=== PATIENT | female | born 1960 | race Asian ===

== ENCOUNTER 2022-01-26 17:16 | Inpatient (IN) | payer BC, OTHER ==
[~2022-01-26] VITALS: Ht 147.3 cm; Wt 60.9 kg
[2022-01-26 18:28] LABS: Urine Bacteria NONE SEEN /hpf (None Seen); Urine Blood TRACE /uL (Negative); Urine Specific Gravity 1.011 (1.001-1.035); Urine WBC 2 /hpf (0 - 5)
[2022-01-26 18:38] LABS: Basophils # (auto) 0 10 ^3/uL (0-0.2); Basophils % (auto) 0.9 % (0.0-2.0); Eosinophils # (auto) 0 10 ^3/uL (0-0.8); Hematocrit 41.2 % (36.0-46.0); Hemoglobin 14.2 g/dL (12.2-16.2); Lymphocytes # (auto) 0.1 10 ^3/uL (0.4-5.4); Lymphocytes % (auto) 2.3 % (10.0-50.0); Mean Corpuscular Hemoglobin 30.2 pg (28.0-32.0); Mean Corpuscular Hgb Conc. 34.4 g/dL (32.0-36.0); Mean Corpuscular Volume 87.8 fL (80.0-100.0); Monocytes # (auto) 0 10 ^3/uL (0-1.3); Monocytes % (auto) 0.7 % (0.0-12.0); Neutrophils # (auto) 4.3 10 ^3/uL (1.6-8.6); Neutrophils % (auto) 96.1 % (37.0-80.0); Red Blood Cells 4.69 10^6/uL (4.0-5.20); Red Cell Distribution Width 13.1 % (11.8-14.3); White Blood Cell 4.5 10^3/uL (4.4-10.8)
[2022-01-26 18:45] LABS: Potassium 3.1 mmol/L (3.5-5.1)
[2022-01-26] MEDS ORDERED: ACETAMINOPHEN 500 MG TAB PO ONE (18:45)
[2022-01-26 18:48] LABS: Albumin 3.5 g/dL (3.4-5.0); BUN/Creatinine Ratio 10.8; Calcium 8.5 mg/dL (8.5-10.1)
[2022-01-26 18:51] LABS: Bilirubin, Total 1.7 mg/dL (0.2-1.0); Total Protein 7.1 g/dL (6.4-8.2)
[2022-01-26] MEDS ORDERED: SODIUM CHLORIDE 0.9% 1,000 ML IV ONE (19:30)
[2022-01-26] MEDS ORDERED: POTASSIUM EFFERVESENT TAB 25 MEQ PO ONE (19:30)
[2022-01-26] MEDS ORDERED: metroNIDAZOLE 500MG/100ML 100 ML IV ONE (20:00)
[2022-01-26] MEDS ORDERED: cefTRIAXone 1GM/50ML D5W 50 ML IV ONE (20:00)
[2022-01-26] MEDS ORDERED: IOHEXOL 300 MG/ML 100ML BOTTLE IJ ONE (21:41)
[2022-01-26] MEDS ORDERED: PANTOPRAZOLE 40 MG/10 ML VIAL INJ IV ONE (21:45)
[2022-01-26] MEDS ORDERED: MORPHINE SULFATE INJ 2 MG/ml SYRG IV PRN (21:45)
[2022-01-26] MEDS ORDERED: ONDANSETRON HCL 4 MG/2 ML VIAL IV PRN (21:45)
[2022-01-26] MEDS: metroNIDAZOLE 500MG/100ML 100 ML IV SCH (22:00)
[2022-01-26] MEDS: SODIUM CHLORIDE 0.9% 1,000 ML IV SCH (22:20)
[2022-01-27 00:15] VITALS: BP 112/70
[2022-01-27] MEDS ORDERED: AMLO-489 PO (01:18)
[2022-01-27 05:00] VITALS: BP 132/81
[2022-01-27] MEDS: metroNIDAZOLE 500MG/100ML 100 ML IV SCH ×3 (05:20→21:26)
[2022-01-27 05:49] LABS: Albumin 2.8 g/dL (3.4-5.0); Calcium 8.1 mg/dL (8.5-10.1); Potassium 3.9 mmol/L (3.5-5.1)
[2022-01-27 05:50] LABS: Basophils # (auto) 0 10 ^3/uL (0-0.2); Basophils % (auto) 0.1 % (0.0-2.0); Eosinophils # (auto) 0 10 ^3/uL (0-0.8); Hematocrit 37.7 % (36.0-46.0); Lymphocytes # (auto) 0.2 10 ^3/uL (0.4-5.4); Lymphocytes % (auto) 2.2 % (10.0-50.0); Mean Corpuscular Hemoglobin 30.1 pg (28.0-32.0); Mean Corpuscular Hgb Conc. 34.4 g/dL (32.0-36.0); Mean Corpuscular Volume 87.6 fL (80.0-100.0); Monocytes # (auto) 0.4 10 ^3/uL (0-1.3); Monocytes % (auto) 3.7 % (0.0-12.0); Neutrophils # (auto) 9.7 10 ^3/uL (1.6-8.6); Red Cell Distribution Width 13.2 % (11.8-14.3); White Blood Cell 10.3 10^3/uL (4.4-10.8)
[2022-01-27 05:53] LABS: BUN/Creatinine Ratio 7.5; Bilirubin, Total 2.2 mg/dL (0.2-1.0); Total Protein 6.4 g/dL (6.4-8.2)
[2022-01-27 08:30] VITALS: BP 141/72
[2022-01-27] MEDS: cefTRIAXone 1GM/50ML D5W 50 ML IV SCH ×2 (10:13→10:16)
[2022-01-27] MEDS: PANTOPRAZOLE 40 MG/10 ML VIAL INJ IV SCH ×2 (10:13→10:16)
[2022-01-27] MEDS: SODIUM CHLORIDE 0.9% 1,000 ML IV SCH ×2 (10:14→10:16)
[2022-01-27 12:30] VITALS: BP 144/73
[2022-01-27 13:13] LABS: Hepatitis A Ab IgM Negative; Hepatitis B Core IgM Negative
[2022-01-27 13:14] LABS: Hepatitis C Antibody Negative (Negative)
[2022-01-27 16:30] VITALS: BP 115/67
[2022-01-27] MEDS: ACETAMINOPHEN 325 MG TAB PO PRN (20:17)
[2022-01-27 22:00] VITALS: BP_SYST 110; BP_SYST 117; BP_DIAS 60; BP_DIAS 77
[2022-01-28] MEDS: SODIUM CHLORIDE 0.9% 1,000 ML IV SCH ×2 (01:35→20:27)
[2022-01-28 05:00] VITALS: BP 109/59
[2022-01-28] MEDS: metroNIDAZOLE 500MG/100ML 100 ML IV SCH ×3 (05:55→22:00)
[2022-01-28 09:14] VITALS: BP 109/54
[2022-01-28] MEDS: cefTRIAXone 1GM/50ML D5W 50 ML IV SCH (09:19)
[2022-01-28] MEDS: PANTOPRAZOLE 40 MG/10 ML VIAL INJ IV SCH (09:19)
[2022-01-28 12:40] VITALS: BP 125/61
[2022-01-28 16:31] VITALS: BP 146/76
[2022-01-28 16:47] LABS: INR 1.03 (0.9-1.15); Partial Thromboplastin Time 32.4 sec (23.6-33.0)
[2022-01-28 22:00] VITALS: BP 130/66
[2022-01-29 05:00] VITALS: BP 147/67
[2022-01-29] MEDS ORDERED: fentaNYL CITRATE 100 MCG/2 ML VL ONE (07:39)
[2022-01-29] MEDS ORDERED: MEPERIDINE HCL (25 MG/ML) 1ML VIAL ONE (07:39)
[2022-01-29] MEDS ORDERED: MIDAZOLAM HCL 2MG/2ML 2ml VIAL (1mg/ml) ONE (07:39)
[2022-01-29] MEDS ORDERED: ROCURONIUM 10MG/ML 10ML VIAL IV ONE ×2 (07:39→08:59)
[2022-01-29] MEDS ORDERED: SODIUM CHLORIDE LOCK 10 ML ONE (07:40)
[2022-01-29] MEDS ORDERED: ONDANSETRON HCL 4 MG/2 ML VIAL ONE (07:40)
[2022-01-29] MEDS ORDERED: NEOSTIGMINE 1 MG/ML INJ (10mg/10ML VIAL) ONE (07:40)
[2022-01-29] MEDS ORDERED: DexAMETHasone SOD PHOS 10MG/1ML VIAL INJ ONE (07:40)
[2022-01-29] MEDS ORDERED: GLYCOPYRROLATE 0.2 MG/ML 1ML VIAL ONE (07:40)
[2022-01-29] MEDS ORDERED: ceFAZolin 1GM/50ML 50 ML IV ONE (08:39)
[2022-01-29] MEDS ORDERED: HYDROmorphone HCL 2 MG/ML VL/or syr IV PRN (08:45)
[2022-01-29] MEDS ORDERED: MORPHINE SULFATE 4 MG/ML SYR/VIAL IV PRN (08:45)
[2022-01-29] MEDS ORDERED: METOCLOPRAMIDE HCL 5MG/ml INJ 2ml VIAL IV PRN (08:45)
[2022-01-29] MEDS ORDERED: LIDOCAINE W/ EPINEPHRINE 1% 20ML VIAL ONE (08:53)
[2022-01-29] MEDS ORDERED: BUPIVACAINE 0.25% INJ 50ML VIAL ONE (08:54)
[2022-01-29] MEDS ORDERED: SUCCINYLCHOLINE CHLORIDE 20 MG/ML 10ML VIAL IV ONE (08:59)
[2022-01-29 09:00] VITALS: BP 150/72
[2022-01-29] MEDS: cefTRIAXone 1GM/50ML D5W 50 ML IV SCH (09:00)
[2022-01-29] MEDS: PANTOPRAZOLE 40 MG/10 ML VIAL INJ IV SCH (10:00)
[2022-01-29] MEDS ORDERED: HYDROmorphone HCL 2 MG/ML VL/or syr IV ONE ×2 (11:21→11:32)
[2022-01-29] MEDS ORDERED: HYDROmorphone HCL 2 MG/ML VL/or syr ONE (11:21)
[2022-01-29] MEDS: SODIUM CHLORIDE 0.9% 1,000 ML IV SCH (12:15)
[2022-01-29 13:00] VITALS: BP 119/65
[2022-01-29] MEDS: metroNIDAZOLE 500MG/100ML 100 ML IV SCH ×2 (14:00→21:44)
[2022-01-29] MEDS ORDERED: PROPOFOL 10 MG/ML 20 ML IV ONE (14:42)
[2022-01-29 17:00] VITALS: BP 140/71
[2022-01-29] MEDS: ACETAMINOPHEN 325 MG TAB PO PRN (17:47)
[2022-01-29 22:00] VITALS: BP 138/74
[2022-01-30] MEDS: SODIUM CHLORIDE 0.9% 1,000 ML IV SCH ×2 (01:48→11:44)
[2022-01-30 05:00] VITALS: BP 127/73
[2022-01-30] MEDS: metroNIDAZOLE 500MG/100ML 100 ML IV SCH ×3 (05:37→22:04)
[2022-01-30] MEDS: ACETAMINOPHEN 325 MG TAB PO PRN ×2 (07:06→14:29)
[2022-01-30 07:40] LABS: Basophils # (auto) 0 10 ^3/uL (0-0.2); Basophils % (auto) 0.1 % (0.0-2.0); Eosinophils # (auto) 0 10 ^3/uL (0-0.8); Hematocrit 34.7 % (36.0-46.0); Mean Corpuscular Hemoglobin 30.1 pg (28.0-32.0); Mean Corpuscular Hgb Conc. 34.7 g/dL (32.0-36.0); Mean Corpuscular Volume 86.8 fL (80.0-100.0); Monocytes # (auto) 0.5 10 ^3/uL (0-1.3); Monocytes % (auto) 6.3 % (0.0-12.0); Neutrophils # (auto) 7.3 10 ^3/uL (1.6-8.6); Neutrophils % (auto) 82.6 % (37.0-80.0); Red Cell Distribution Width 13.8 % (11.8-14.3); White Blood Cell 8.8 10^3/uL (4.4-10.8)
[2022-01-30 09:16] VITALS: BP 114/78
[2022-01-30] MEDS: PANTOPRAZOLE 40 MG/10 ML VIAL INJ IV SCH (11:42)
[2022-01-30] MEDS: cefTRIAXone 1GM/50ML D5W 50 ML IV SCH (11:43)
[2022-01-30 13:00] VITALS: BP 143/68
[2022-01-30 17:12] VITALS: BP 136/67
[2022-01-30 22:05] VITALS: BP 135/65
[2022-01-31] MEDS: SODIUM CHLORIDE 0.9% 1,000 ML IV SCH (02:20)
[2022-01-31 04:29] VITALS: BP 128/68
[2022-01-31] MEDS: metroNIDAZOLE 500MG/100ML 100 ML IV SCH (06:26)
[2022-01-31 09:00] VITALS: BP 163/73
[2022-01-31] MEDS: cefTRIAXone 1GM/50ML D5W 50 ML IV SCH (09:23)
[2022-01-31] MEDS: PANTOPRAZOLE 40 MG/10 ML VIAL INJ IV SCH (09:23)
[2022-01-31] MEDS ORDERED: LEVO500T31 PO (11:19)
[2022-01-31] MEDS ORDERED: METR500T PO (11:19)
[2022-01-31] MEDS ORDERED: HYDR-4902 PO (11:19)
[2022-01-31 11:41] LABS: Calcium 8.3 mg/dL (8.5-10.1)
[2022-01-31] MEDS ORDERED: cloNIDine HCL 0.1 MG TAB PO ONE (11:45)
[2022-01-31 11:47] LABS: Albumin 2.5 g/dL (3.4-5.0); BUN/Creatinine Ratio 6.1; Bilirubin, Total 0.7 mg/dL (0.2-1.0); Total Protein 6.1 g/dL (6.4-8.2)
[2022-01-31 12:11] LABS: Potassium 2.5 mmol/L (3.5-5.1)
[2022-01-31] MEDS ORDERED: POTASSIUM CHL 20 Meq TABLET PO ONE (12:45)
[2022-01-31 14:05] VITALS: BP 191/81
== END 2022-01-31 15:40 | disposition home or self-care (01) | DRG 419 ==
LOC: ER 17:16 → OVERFLOW 21:31 → WEST WING 23:38
PROVIDERS: ADMIT Nurse Practitioner; ATTEND Family Medicine
PROC: 0FT44ZZ Resection of Gallbladder, Percutaneous Endoscopic Approach (ICD-10-PCS; principal; 2022-01-29 09:20)
DX: K80.00 Calculus of gallbladder with acute cholecystitis without obstruction (principal); I10 Essential (primary) hypertension; K75.9 Inflammatory liver disease, unspecified; K76.0 Fatty (change of) liver, not elsewhere classified; E86.0 Dehydration; Z20.822 Contact with and (suspected) exposure to COVID-19; Z80.1 Family history of malignant neoplasm of trachea, bronchus and lung; Z82.49 Family history of ischemic heart disease and other diseases of the circulatory system
CPT/HCPCS: 36415; 71045; 74177; 74181; 76705; 78226; 80053; 80074; 81001; 82247; 83605; 83690; 84484; 85025; 85610; 85730; 86850; 86900; 86901; 87040; 93005; 96365; 96368; 96375; C9113; G0378; J0330; J0690; J0696; J1100; J2250; J2405; J2704; J3490

== ENCOUNTER 2024-04-14 09:04 | Emergency (ER) | payer BC ==
[~2024-04-14] VITALS: Ht 147.3 cm; Wt 55.3 kg
[~2024-04-14 09:04] MED LIST: AMLO1TAB22 PO; HYDR-4902 PO; LEVO500T31 PO; METR500T PO
[2024-04-14] MEDS: cloNIDine HCL 0.1 MG TAB PO ONE (09:19)
[2024-04-14 10:14] LABS: Urine Bacteria None Seen /hpf (None Seen)
[2024-04-14 10:17] LABS: Basophils # (auto) 0 10 ^3/uL (0-0.2); Basophils % (auto) 0.5 % (0.0-2.0); Eosinophils # (auto) 0.1 10 ^3/uL (0-0.8); Eosinophils % (auto) 1.3 % (0.0-7.0); Hematocrit 41.5 % (36.0-46.0); Hemoglobin 14.5 g/dL (12.2-16.2); Lymphocytes # (auto) 1.2 10 ^3/uL (0.4-5.4); Lymphocytes % (auto) 23.1 % (10.0-50.0); Mean Corpuscular Hemoglobin 30.6 pg (28.0-32.0); Mean Corpuscular Hgb Conc. 34.8 g/dL (32.0-36.0); Mean Corpuscular Volume 87.8 fL (80.0-100.0); Monocytes # (auto) 0.3 10 ^3/uL (0-1.3); Monocytes % (auto) 5.4 % (0.0-12.0); Neutrophils # (auto) 3.6 10 ^3/uL (1.6-8.6); Neutrophils % (auto) 69.7 % (37.0-80.0); Nucleated Red Blood Cells % 0.1 %; Red Blood Cells 4.73 10^6/uL (4.0-5.20); Red Cell Distribution Width 13.1 % (11.8-14.3); White Blood Cell 5.1 10^3/uL (4.4-10.8)
[2024-04-14 10:26] LABS: Chloride 108 mmol/L (98-107); Potassium 3.5 mmol/L (3.5-5.1); Sodium 141 mmol/L (136-145)
[2024-04-14 10:27] LABS: Anion Gap 7 (5-15); Calcium 9.7 mg/dL (8.7-10.4); Carbon Dioxide 26 mmol/L (20-30)
[2024-04-14 10:32] LABS: BUN/Creatinine Ratio 10.8 (10.0-20.0); Blood Urea Nitrogen 7 mg/dL (9-23); Glucose 125 mg/dL (74-106)
[2024-04-14 10:33] LABS: Urine Blood Negative /uL (Negative); Urine Clarity Clear (Clear); Urine Color Colorless (Yellow); Urine Protein, UAD Negative (Negative); Urine Specific Gravity 1.007 (1.001-1.035); Urine Urobilinogen Normal (Negative); Urine WBC <1 /hpf (0 - 5); Urine pH 6.5 (5.0-9.0)
[2024-04-14] MEDS: ACETAMINOPHEN 500 MG TAB PO ONE (10:43)
[2024-04-14] MEDS ORDERED: AMLO1TAB23 PO (10:46)
[2024-04-14 10:50] VITALS: BP 140/80; PULSE 98; RESP 18; TEMP 98.2; O2SAT 98
== END 2024-04-14 10:53 | disposition home or self-care (01) ==
LOC: ER 09:04
DX: I10 Essential (primary) hypertension (principal); Z91.199 Patient's noncompliance with other medical treatment and regimen due to unspecified reason; Z79.899 Other long term (current) drug therapy
CPT/HCPCS: 36415; 80048; 81001; 85025

== ENCOUNTER 2024-05-12 08:12 | Emergency (ER) | payer BC ==
[~2024-05-12] VITALS: Ht 147.3 cm; Wt 51.5 kg
[~2024-05-12 08:12] MED LIST changes: +AMLO1TAB23 PO
[2024-05-12] MEDS ORDERED: cloNIDine HCL 0.1 MG TAB PO ONE (08:30)
[2024-05-12] MEDS: LABETALOL HCL 20 MG/4 ML VL IV ONE (08:30)
[2024-05-12 08:41] LABS: Basophils # (auto) 0 10 ^3/uL (0-0.2); Basophils % (auto) 0.6 % (0.0-2.0); Eosinophils # (auto) 0 10 ^3/uL (0-0.8); Eosinophils % (auto) 0.7 % (0.0-7.0); Hematocrit 45.8 % (36.0-46.0); Hemoglobin 15.7 g/dL (12.2-16.2); Lymphocytes # (auto) 1.9 10 ^3/uL (0.4-5.4); Lymphocytes % (auto) 32.5 % (10.0-50.0); Mean Corpuscular Hemoglobin 30.4 pg (28.0-32.0); Mean Corpuscular Hgb Conc. 34.2 g/dL (32.0-36.0); Mean Corpuscular Volume 88.8 fL (80.0-100.0); Monocytes # (auto) 0.3 10 ^3/uL (0-1.3); Monocytes % (auto) 5.6 % (0.0-12.0); Neutrophils # (auto) 3.5 10 ^3/uL (1.6-8.6); Neutrophils % (auto) 60.6 % (37.0-80.0); Nucleated Red Blood Cells % 0.1 %; Platelet Count (auto) 366 10^3/uL (140-450); Red Blood Cells 5.16 10^6/uL (4.0-5.20); White Blood Cell 5.8 10^3/uL (4.4-10.8)
[2024-05-12 08:54] VITALS: PULSE 102; RESP 16; O2SAT 98
[2024-05-12 09:06] LABS: Alanine Aminotransferase 29 U/L (7-40); Alkaline Phosphatase 106 U/L (46-116); Calcium 10.2 mg/dL (8.7-10.4); Carbon Dioxide 25 mmol/L (20-30); Chloride 103 mmol/L (98-107)
[2024-05-12 09:07] LABS: Albumin 4.6 g/dL (3.2-4.8); Anion Gap 10 (5-15); Aspartate Aminotransferase 20 U/L (13-40); Glucose 118 mg/dL (74-106); Magnesium 2.3 mg/dL (1.6-2.6); Potassium 3.2 mmol/L (3.5-5.1); Sodium 138 mmol/L (136-145); Total Protein 7.4 g/dL (5.7-8.2)
[2024-05-12 09:18] LABS: BUN/Creatinine Ratio 6.6 (10.0-20.0); Bilirubin, Total 0.8 mg/dL (0.2-1.0); Blood Urea Nitrogen < 5 mg/dL (9-23)
[2024-05-12 10:26] LABS: Urine Bacteria MANY /hpf (None Seen); Urine Blood TRACE /uL (Negative); Urine Clarity Clear (Clear); Urine Color Colorless (Yellow); Urine Protein, UAD Negative (Negative); Urine Specific Gravity 1.006 (1.001-1.035); Urine Urobilinogen Normal (Negative); Urine WBC 30 /hpf (0 - 5)
[2024-05-12 13:08] VITALS: TEMP 98.5
[2024-05-12] MEDS: POTASSIUM EFFERVESENT TAB 25 MEQ GT ONE (13:27)
[2024-05-12] MEDS: POTASSIUM EFFERVESENT TAB 25 MEQ PO ONE (13:28)
[2024-05-12] MEDS: hydrALAZINE HCL 20 MG/ML VL IV ONE (13:33)
[2024-05-12] MEDS: SODIUM CHLORIDE 0.9% 1,000 ML IV ONE (14:04)
[2024-05-12 14:42] VITALS: BP 149/64; PULSE 71; RESP 19; O2SAT 98
[2024-05-12] MEDS ORDERED: LOSA-534 PO (15:02)
[2024-05-12] MEDS ORDERED: CEPH250C PO (15:02)
== END 2024-05-12 15:08 | disposition home or self-care (01) ==
LOC: ER 08:12
DX: I10 Essential (primary) hypertension (principal)
CPT/HCPCS: 36415; 71046; 80053; 81001; 83735; 84484; 85025; 93005; 96361; 96374; 96375; 99285; J0360; J7030

== ENCOUNTER 2024-12-25 14:26 | Emergency (ER) | payer BC ==
[~2024-12-25] VITALS: Ht 147.3 cm; Wt 50.1 kg
[~2024-12-25 14:26] MED LIST changes: +CEPH250C PO; +LOSA-534 PO
[2024-12-25 15:00] VITALS: PULSE 104; RESP 16; TEMP 98.8; O2SAT 95
--- NOTE | 2024-12-25 15:09 | ED.PDOC ---
History of Present Illness HPI Comments 64 y.o female with PMHx of HTN and Pre DM, presents to the ED for an evaluation of hypertension, increased thirst and urination output x 2 days. Patient reports compliance with medications, states she is not on any diabetic medication. Patient denies any headaches, vision changes, chest pain or SOB. Upon ED ar herb, blood pressure read 155/88. Chief Complaint: High Blood Pressure Time Seen by MD: 15:00 Primary Care Provider: FLAQUITO Anthony Notes: Nurses Notes, Medications, Allergies Allergies: Coded Allergies: NO KNOWN ALLERGIES (Unverified , 01/26/22) Home Meds Active Scripts Cephalexin (KEFLEX CAPSULE) 250 Mg Cp, 500 MG PO TID for 10 Days, #30 CAP Prov:ARMANDO LIU MD 05/12/24 Losartan Potassium (Losartan Potassium) 50 Mg Tab, 1 TAB PO DAILY, #30 TAB 5 Refills Prov:ARMANDO LIU MD 05/12/24 Amlodipine Besylate (Amlodipine Besylate) 10 Mg Tab, 1 TAB PO DAILY, #30 TAB Prov:ZEKE GARSIA 04/14/24 Hydrocodone-Acetaminophen (Hydrocodone Bitartrate/AC 5-325 mg) 1 Tab Tab, 1 TAB PO TID PRN, #20 TAB Prov:LILY MITCHELL MD 01/31/22 Metronidazole (Flagyl) 500 Mg Tab, 500 MG PO TID, #20 TAB Prov:LILY MITCHELL MD 01/31/22 Levofloxacin (Levaquin) 500 Mg Tab, 500 MG PO DAILY, #7 TAB Prov:LILY MITCHELL MD 01/31/22 Reported Medications Amlodipine Besylate (Amlodipine Besylate) 5 Mg Tab, 10 MG PO DAILY for 30 Days, MG 01/27/22 Information Source: Patient Mode of Arrival: Ambulatory Severity: Moderate Timing: Days (2) Duration: Since onset Past Medical History PAST MEDICAL HISTORY: HTN Surgical History: Denies all surgeries 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 Family History Family History: Reviewed,noncontributory to illness Social History Smoker: Non-Smoker Alcohol: Denies ETOH Use Drugs: Denies Drug Use Lives In: Home Constitutional: denies: chills, diaphoresis, fatigue, fever, malaise, sweats, weakness, others EENTM: denies: blurred vision, double vision, ear bleeding, ear discharge, ear drainage, ear pain, ear ringing, eye pain, eye redness, hearing loss, mouth pain, mouth swelling, nasal discharge, nose bleeding, nose congestion, nose pain, photophobia, tearing, throat pain, throat swelling, voice changes, others Respiratory: denies: cough, hemoptysis, orthopnea, SOB at rest, shortness of breath, SOB with excertion, stridor, wheezing, others Cardiovascular: denies: chest pain, dizzy spells, diaphoresis, Dyspnea on exertion, edema, irregular heart beat, left arm pain, lightheadedness, palpitations, PND, syncope, others Gastrointestinal: denies: abdomen distended, abdominal pain, blood streaked bowels, constipated, diarrhea, dysphagia, difficulty swallowing, hematemesis, melena, nausea, poor appetite, poor fluid intake, rectal bleeding, rectal pain, vomiting, others Genitourinary: denies: abnormal vagina bleeding, burning, dyspareunia, dysuria, flank pain, frequency, hematuria, incontinence, pain, , vagina discharge, urgency, others Neurological: denies: dizziness, fainting, headache, left sided numbness, left sided weakness, numbness, paresthesia, pre-existing deficit, right sided numbness, right sided weakness, seizure, speech problems, tingling, tremors, weakness, others Musculoskeletal: denies: back pain, gout, joint pain, joint swelling, muscle pain, muscle stiffness, neck pain, others Integumetry: denies: bruises, change in color, change in hair/nails, dryness, laceration, lesions, lumps, rash, wounds, others Allergic/Immunocompromised: denies: Difficulty Healing, Frequent Infections, Hives, Itching, others Hematologic/Lymphatic: denies: anemia, blood clots, easy bleeding, easy bruising, swollen glands, others Endocrine: reports: excessive thirst, excessive urination; denies: excessive hunger, excessive sweating, flushing, intolerance to cold, intolerance to heat, unexplained weight gain, unexplained weight loss, others Psychiatric: denies: anxiety, bipolar disorder, depression, hopeless, panic disorder, schizophrenia, sleepless, suicidal, others All Other Systems: Reviewed and Negative Physical Exam General Appearance: Moderate Distress HEENT: Normal ENT Inspection, Pharynx Normal, TMs Normal Neck: Full Range of Motion, Non-Tender, Normal, Normal Inspection Respiratory: Chest Non-Tender, Lungs Clear, No Accessory Muscle Use, No Respiratory Distress, Normal Breath Sounds Cardiovascular: No Edema, No JVD, No Murmur, No Gallop, Normal Peripheral Pulses, Regular Rate/Rhythm Breast Exam: Deferred Gastrointestinal: No Organomegaly, Non Tender, No Pulsatile Mass, Normal Bowel Sounds, Soft Genitalia: Deferred Pelvic: Deferred Rectal: Deferred Extremities: No calf tenderness, Normal capillary refill, Normal inspection, Normal range of motion, Non-tender, No pedal edema Musculoskeletal : Apperance: Normal Neurologic: Alert, 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 Was a procedure done?: No Differential Dx Considerations may include: Essential HTN, accelerated HTN, New onset diabetic, DKA, hyperglycemia X-Ray, Labs, Meds, VS Vital Signs Date Time Temp Pulse Resp B/P (MAP) Pulse Ox O2 Delivery O2 Flow Rate FiO2 12/25/24 15:17 148/98 12/25/24 15:00 104 16 95 Room Air* 0 21 12/25/24 15:00 98.8 104 16 148/94 (112) 95 98.8 12/25/24 14:57 99.2 122 17 155/88 (110) 96 99.2 Lab Test 12/25/24 15:21 12/25/24 14:56 Range/Units Urine Color Colorless Yellow Urine Clarity Clear Clear Urine pH 6.0 5.0-9.0 Urine Specific [place] 1.003 1.001-1.035 Urine Protein Negative Negative Urine Ketones Negative Negative Urine Blood Negative Negative /uL Urine Nitrite Negative Negative Urine Bilirubin Negative Negative Urine Urobilinogen Normal Negative mg/dL Urine Leukocyte Esterase Negative Negative /uL Urine RBC <1 0 - 4 /hpf Urine Microscopic WBC 1 0-5 /HPF Urine Squamous Epithelial Cells None seen <5 /hpf Urine Bacteria Mod H None Seen /hpf Urine Glucose Normal Normal mg/dL POC Glucose 134 H 70-106 mg/dl Current Medications Medications (Trade) Dose Ordered Sig/Demond Route Start Time Stop Time Status Last Admin Clonidine HCl (Catapres Tablet) 0.1 mg ONCE ONCE PO 12/25/24 15:00 12/25/24 15:01 DC 12/25/24 15:17 Patient alert. States that she has high blood pressure. Blood pressure was not much elevated on arrival. She is anxious. Saturation pristine on room air. She was given clonidine. Blood sugar within normal limits. Reviewed her history. Explained to the patient. Was told to follow up with her primary care physician. Was told to come back if there is any problem. Time of 1ST Reevaluation: 15:04 Reevaluation 1ST: Improved Patient Education/Counseling: Diagnosis, Treatment, Prognosis Family Education/Counseling: No Family Present Departure 1 Departure Time of Disposition: 16:05 Impression: Primary Impression: HTN (hypertension) Qualified Codes: I10 - Essential (primary) hypertension Disposition: 01 HOME / SELF CARE / HOMELESS Condition: Good Discharged With: Self Critical Care Note Critical Care Time?: No Stability Stability form required: No I personally scribed for GUANACO EDWARDS MD ([email or web address]) on 12/25/24 at 15:09. Electronically submitted by Nataliia Valles ([facility]). GUANACO EDWARDS MD Dec 25, 2024 15:09
[2024-12-25] MEDS: cloNIDine HCL 0.1 MG TAB PO ONE (15:17)
[2024-12-25 15:36] LABS: Urine Bacteria MOD /hpf (None Seen); Urine Blood Negative /uL (Negative); Urine Clarity Clear (Clear); Urine Color Colorless (Yellow); Urine Protein, UAD Negative (Negative); Urine Specific Gravity 1.003 (1.001-1.035); Urine Squamous Epithelial Cell None Seen /hpf (<5); Urine Urobilinogen Normal (Negative); Urine WBC 1 /HPF (0-5)
[2024-12-25 16:07] VITALS: BP 117/72; PULSE 84; RESP 16; O2SAT 98
== END 2024-12-25 16:09 | disposition home or self-care (01) ==
LOC: ER 14:26
DX: I10 Essential (primary) hypertension (principal); E11.9 Type 2 diabetes mellitus without complications; Z79.899 Other long term (current) drug therapy
CPT/HCPCS: 81001; 82962

== ENCOUNTER 2024-12-29 18:09 | Inpatient (IN) | payer BC ==
[~2024-12-29] VITALS: Ht 144.8 cm; Wt 51.6 kg
[~2024-12-29 18:09] MED LIST changes: +ATOR20TA50 PO; +LOSA-535 PO
--- NOTE | 2024-12-29 18:27 | ED.PDOC ---
HPI Comments 64F presents to the ER w/ prior Hx of being in the ER 4 days ago due from HTN which may be associated to the c/c of CP. Pt reports that whenever she walks she starts to get aching left sided palpitations w/ back pain. Pt notes that it only happened for the past 2 days. PMHx:HTN, High Lipids SHx:Cholecystectomy HPI: Poor Historian. Silvia cardoso 63-year-old female presents to emergency depart for evaluation of exertional shortness of breath with associated palpitations where she feels his heart is beating fast. Some associated chest discomfort on the left side that radiates to the upper back. Patient currently denies any chest pain. Patient states compliance with the medications. Past Medical History: Hypertension hyperlipidemia Past Surgical History: Cholecystectomy REVIEW OF SYSTEMS: CONSTITUTIONAL: Denies acute: fever, diaphoresis, chills, generalized weakness. HEAD: Denies acute: headache, photophobia Eyes: Denies acute: Double vision, vision loss, eye pain, eye discharge. EARS: Denies acute: tinnitus, hearing loss, ear discharge, ear pain, THROAT: Denies acute: sore throat, swelling, difficulty swallowing , pain with swallowing, change in voice. NECK: Denies acute: neck pain, neck swelling, stiff neck. HEART: Denies acute : LUNGS: Denies acute: , wheezing, cough, hemoptysis ABDOMEN: Denies acute: abdominal pain, Nausea, Vomiting, diarrhea, melena , hematemesis, hematochezia SKIN: Denies acute: rash, redness, lesions, itchiness. EXTREMITIES: Denies acute: calf pain, numbness, tingling, weakness, denies pain in extremity. Denies acute: Low back pain. Neuro: Denies acute: focal neurological deficit, motor or sensory focal neurological deficit, tremors, seizure like activity, confusion, dizziness, change in mental status, loss of bowel or bladder function, cauda equina like symptoms. : Denies acute: dysuria, hematuria, flank pain, increase in urinary frequency. PSYCH: Denies acute: hallucination, suicidal ideation, homicidal ideation. FEMALE: Denies acute: abnormal vaginal bleeding, foul odor, unusual discharge. PHYSICAL EXAM: General: ------mild--acute distress, awake and alert. Head: normocephalic, atraumatic. Neck: supple, trachea is midline, no swelling. Throat: Normal phonation. Eyes:, no erythema, no purulent discharge, no proptosis, no icterus. Heart: regular tachycardic, no significant murmur appreciated. Lungs: no apparent respiratory distress, Able to speak in full sentences. No wheezing, no rhonchi, no crackles. No stridors Clear to auscultation bilaterally. Abdomen: non tender to palpation, non distended, soft, no guarding, no rebound, + bowel sounds. Neuro: Awake, Alert, oriented to name, self, situation, follows commands GCS=15. Speech is normal. Skin: no petechia, no purpura, no cyanosis, non-pale, not jaundice. Lower extremities: --no - Pitting edema no deformity, no focal swelling, no calf TTP. Makes eye contact. moves all four extremities. Face: no apparent facial droop. Ambulating in the ED independently. ED COURSE: Time Seen by MD: 18:10 Primary Care Provider: FLAQUITO Reviewed Notes: Nurses Notes, Medications, Allergies Allergies: Coded Allergies: NO KNOWN ALLERGIES (Unverified , 01/26/22) Home Meds Active Scripts Cephalexin (KEFLEX CAPSULE) 250 Mg Cp, 500 MG PO TID for 10 Days, #30 CAP Prov:ARMANDO LIU MD 05/12/24 Losartan Potassium (Losartan Potassium) 50 Mg Tab, 1 TAB PO DAILY, #30 TAB 5 Refills Prov:ARMANDO LIU MD 05/12/24 Amlodipine Besylate (Amlodipine Besylate) 10 Mg Tab, 1 TAB PO DAILY, #30 TAB Prov:ZEKE GARSIA 04/14/24 Hydrocodone-Acetaminophen (Hydrocodone Bitartrate/AC 5-325 mg) 1 Tab Tab, 1 TAB PO TID PRN, #20 TAB Prov:LILY MITCHELL MD 01/31/22 Metronidazole (Flagyl) 500 Mg Tab, 500 MG PO TID, #20 TAB Prov:LILY MITCHELL MD 01/31/22 Levofloxacin (Levaquin) 500 Mg Tab, 500 MG PO DAILY, #7 TAB Prov:LILY MITCHELL MD 01/31/22 Reported Medications Amlodipine Besylate (Amlodipine Besylate) 5 Mg Tab, 10 MG PO DAILY for 30 Days, MG 01/27/22 Information Source: Patient Mode of Arrival: Ambulatory Past Medical History PAST MEDICAL HISTORY: High Lipids, HTN Surgical History: Cholecystectomy 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 Was a procedure done?: No CP Differential Dx Differential Diagnosis: A-fib, A-Flutter, Angina, Anxiety / Panic Attack, Atrial Dysrhythmia, AV Block 1st Degree, AV Block 2nd Degree, AV Block 3rd Degree, Digoxin Toxicity, Electrolyte Disorder, Heart Failure, Hyperthyroidism, Hyperventilation, Hypoxia, MAT, TX, PAC's, PSVT, Pulmonary Embolus, PVC's, Renal Failure, Sinus Tachycardia, Torsades De Pointes, Ventricular Dysrhythmia, V-Fib, V-Tach, WPW Differential Diagnosis: Other (Ddx include but not limitied to gastritis, musculoskeletal pain, radiculopathy, atypical chest pain, dissection, aneurysm, ACS, unstable angina, hiatal hernia, GERD, anxiety, costochondritis, PE, pneumothroax, neoplasm, cardiac ischemia, drug abuse, anemia.) X-Ray, Labs, Meds, VS Vital Signs Date Time Temp Pulse Resp B/P (MAP) Pulse Ox O2 Delivery O2 Flow Rate FiO2 12/29/24 19:04 97 12/29/24 18:32 98.0 116 18 155/79 (104) 96 98.0 12/29/24 18:24 112 Lab Test 12/29/24 19:21 12/29/24 19:08 12/29/24 18:19 Range/Units Blood Gas Specimen Type Arterial Blood Gas Sample Site Right brachial Blood Gas Patient Temperature 37.0 Arterial Blood Date Drawn [id number] Arterial Blood pH 7.453 H 7.350-7.450 Arterial Blood Partial Pressure CO2 41.5 32.0-45.0 mmHg Arterial Blood Partial Pressure O2 76.0 L 83.0-108.0 mmHg Arterial Blood HCO3 28.4 H 21.0-28.0 mmol/L Arterial Blood Oxygen Saturation 95.4 94.0-98.0 % Arterial Blood Base Excess 4.1 H -2.0-3.0 mmol/L Arterial Blood Oxyhemoglobin 94.6 94.0-98.0 % Arterial Blood Carboxyhemoglobin 0.5 0.5-1.5 % Arterial Blood Methemoglobin 0.3 0.0-1.5 % Yuval Test N/a Blood Gas Total Hemoglobin 14.40 12.0-16.0 g/dL Blood Gas Modality Room air FiO2 % 21.0 Troponin I High Sensitivity < 3 L < 3 L </=34 ng/L White Blood Count 7.9 4.4-10.8 10^3/uL Red Blood Count 4.85 4.0-5.20 10^6/uL Hemoglobin 14.5 12.2-16.2 g/dL Hematocrit 42.3 36.0-46.0 % Mean Corpuscular Volume 87.3 80.0-100.0 fL Mean Corpuscular Hemoglobin 30.0 28.0-32.0 pg Mean Corpuscular Hemoglobin Concent 34.3 32.0-36.0 g/dL Red Cell Distribution Width 13.1 11.8-14.3 % Platelet Count 352 140-450 10^3/uL Mean Platelet Volume 6.8 L 6.9-10.8 fL Neutrophils (%) (Auto) 52.4 37.0-80.0 % Lymphocytes (%) (Auto) 39.5 10.0-50.0 % Monocytes (%) (Auto) 6.2 0.0-12.0 % Eosinophils (%) (Auto) 1.1 0.0-7.0 % Basophils (%) (Auto) 0.8 0.0-2.0 % Neutrophils # (Auto) 4.1 1.6-8.6 10 ^3/uL Lymphocytes # (Auto) 3.1 0.4-5.4 10 ^3/uL Monocytes # (Auto) 0.5 0-1.3 10 ^3/uL Eosinophils # (Auto) 0.1 0-0.8 10 ^3/uL Basophils # (Auto) 0.1 0-0.2 10 ^3/uL Nucleated Red Blood Cells 0.8 % D-Dimer, Quantitative < 0.19 0.0-0.49 mg/L FEU Sodium Level 140 136-145 mmol/L Potassium Level 3.5 3.5-5.1 mmol/L Chloride Level 104 98-107 mmol/L Carbon Dioxide Level 27 20-31 mmol/L Anion Gap 9 5-15 Blood Urea Nitrogen 10 9-23 mg/dL Creatinine 0.67 0.550-1.02 mg/dL Glomerular Filtration Rate Calc 98 >90 mL/min BUN/Creatinine Ratio 14.9 10.0-20.0 Serum Glucose 144 H 74-106 mg/dL Calcium Level 10.1 8.7-10.4 mg/dL Magnesium Level 2.3 1.6-2.6 mg/dL Total Bilirubin 0.4 0.2-1.0 mg/dL Aspartate Amino Transferase (AST) 19 13-40 U/L Alanine Aminotransferase (ALT) 18 7-40 U/L Alkaline Phosphatase 126 H 46-116 U/L B-Type Natriuretic Peptide 14.06 0-100 pg/mL Total Protein 7.9 5.7-8.2 g/dL Albumin 4.9 H 3.2-4.8 g/dL Thyroid Stimulating Hormone (TSH) 2.17 0.55-4.78 uIU/mL [place] [id number] Ph: [phone] DIAGNOSTIC IMAGING Diagnostic Imaging Report : [id number] Signed PATIENT: SILVIA CARDOSO ACCT: [id number] UNIT: [id number] : 1960 LOC: ER ROOM / BED: / AGE / SEX: 64 / F ADM STATUS: REG ER SERVICE 1811 ORDERING PHYSICIAN: JOANN LANGLEY DO PROCEDURE(s): CXRP - CHEST PORTABLE REASON: cp ORDER NUMBER(s): [id number], ACCESSION NUMBER(s): [id number] EXAM: XY CHEST PORTABLE REASON FOR EXAM: Chest pain TECHNIQUE: 1 view of the chest COMPARISON: CHEST PORTABLE on DOS: 01/29/22 FINDINGS: LUNGS: No pleural effusion, consolidation, or pneumothorax MEDIASTINUM: Unremarkable BONES: No acute osseous abnormality OTHER: None IMPRESSION: 1. No radiographic evidence of an acute cardiopulmonary process. ATED BY: KENDAL BARRIOS MD DICTATED DATE/TIME: 12/29/241844 SIGNED BY: KENDAL BARRIOS MD SIGNED DATE/TIME: 12/29/241844 CC: Time of 1ST Reevaluation: 18:40 Reevaluation 1ST: Unchanged Patient Education/Counseling: Diagnosis, Treatment Family Education/Counseling: No Family Present Comments Patient presented with the above HPI.-cardiac-----workup was initiated. patient was found with the above mentioned diagnosis. the following medications were ordered: please refer to order lists of meds and tests obtained by myself Dr. Langley. Patient ED course and VS have been stabilized. Patient has been reassessed in the ED and remained in a stable condition. Pertinent incidental findings were discussed with the patient and/or family. Patient/family voices understanding and is agreeable with plan. Patient has been observed in the ED adequate length of time to insure improvement/stability. Escalation of care considered: Consideration of escalation to observation or admission Patient was ADMITTED to the medicine team for further evaluation and treatment of their presentation. All the reports of any imaging studies that were ordered by myself were reviewed by myself. Departure 1 Departure Time of Disposition: 18:59 Impression: Primary Impression: Chest pain Additional Impressions: Tachycardia Hypoxemia Disposition: ADMITTED INPATIENT Admit to: Tele Condition: Guarded Discharged With: Self Critical Care Note Critical Care Time?: Yes (35 min-critical care time only) Heart Score Heart Score: Heart Score Response (Comments) Value History Moderate Suspicious 1 EKG Normal 0 Age 45-64 1 Risk Factors 1 or 2 risk factors 1 Troponin Normal limit 0 Total 3 I personally scribed for JOANN LANGLEY DO ([email or web address]) on 12/29/24 at 18:27. Electronically submitted by Prakash Corona ([email or web address]). JOANN LANGLEY DO Dec 29, 2024 18:27
[2024-12-29 18:36] LABS: Basophils # (auto) 0.1 10 ^3/uL (0-0.2); Basophils % (auto) 0.8 % (0.0-2.0); Eosinophils # (auto) 0.1 10 ^3/uL (0-0.8); Eosinophils % (auto) 1.1 % (0.0-7.0); Hematocrit 42.3 % (36.0-46.0); Hemoglobin 14.5 g/dL (12.2-16.2); Lymphocytes # (auto) 3.1 10 ^3/uL (0.4-5.4); Lymphocytes % (auto) 39.5 % (10.0-50.0); Mean Corpuscular Hgb Conc. 34.3 g/dL (32.0-36.0); Mean Corpuscular Volume 87.3 fL (80.0-100.0); Monocytes # (auto) 0.5 10 ^3/uL (0-1.3); Monocytes % (auto) 6.2 % (0.0-12.0); Neutrophils # (auto) 4.1 10 ^3/uL (1.6-8.6); Neutrophils % (auto) 52.4 % (37.0-80.0); Nucleated Red Blood Cells % 0.8 %; Platelet Count (auto) 352 10^3/uL (140-450); Red Blood Cells 4.85 10^6/uL (4.0-5.20); Red Cell Distribution Width 13.1 % (11.8-14.3); White Blood Cell 7.9 10^3/uL (4.4-10.8)
--- NOTE | 2024-12-29 18:47 | DVH ---
EXAM: XY CHEST PORTABLE REASON FOR EXAM: Chest pain TECHNIQUE: 1 view of the chest COMPARISON: CHEST PORTABLE on DOS: 01/29/22 FINDINGS: LUNGS: No pleural effusion, consolidation, or pneumothorax MEDIASTINUM: Unremarkable BONES: No acute osseous abnormality OTHER: None IMPRESSION: 1. No radiographic evidence of an acute cardiopulmonary process.
[2024-12-29 18:50] LABS: Alanine Aminotransferase 18 U/L (7-40); Anion Gap 9 (5-15); Aspartate Aminotransferase 19 U/L (13-40); BUN/Creatinine Ratio 14.9 (10.0-20.0); Blood Urea Nitrogen 10 mg/dL (9-23); Calcium 10.1 mg/dL (8.7-10.4); Carbon Dioxide 27 mmol/L (20-31); Chloride 104 mmol/L (98-107); Potassium 3.5 mmol/L (3.5-5.1); Sodium 140 mmol/L (136-145); Total Protein 7.9 g/dL (5.7-8.2)
[2024-12-29 18:51] LABS: Bilirubin, Total 0.4 mg/dL (0.2-1.0)
[2024-12-29 18:53] LABS: Alkaline Phosphatase 126 U/L (46-116); Glucose 144 mg/dL (74-106)
[2024-12-29 18:54] LABS: Albumin 4.9 g/dL (3.2-4.8)
--- NOTE | 2024-12-29 19:04 | ECG ---
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
[2024-12-29 19:31] LABS: Base Excess 4.1 mmol/L (-2.0-3.0)
[2024-12-29] MEDS: NITROGLYCERIN 0.4 MG SL TAB SL ONE (21:14)
[2024-12-29] MEDS: ASPirin-EC 325mg tab PO ONE (21:16)
[2024-12-29 21:30] VITALS: PULSE 97; RESP 14; O2SAT 99
--- NOTE | 2024-12-29 21:41 | DVHHP2 ---
Admitting Diagnosis: Chest pain History of Present Illness Silvia thorne 64-year-old female presents to emergency depart for evaluation of exertional shortness of breath with associated palpitations where she feels his heart is beating fast. Some associated chest discomfort on the left side that radiates to the upper back. Patient currently denies any chest pain. Patient states compliance with the medications. Past Medical History: Hypertension hyperlipidemia Past Surgical History: Cholecystectomy REVIEW OF SYSTEMS: CONSTITUTIONAL: Denies acute: fever, diaphoresis, chills, generalized weakness. HEAD: Denies acute: headache, photophobia Eyes: Denies acute: Double vision, vision loss, eye pain, eye discharge. EARS: Denies acute: tinnitus, hearing loss, ear discharge, ear pain, THROAT: Denies acute: sore throat, swelling, difficulty swallowing , pain with swallowing, change in voice. NECK: Denies acute: neck pain, neck swelling, stiff neck. HEART: Denies acute : LUNGS: Denies acute: , wheezing, cough, hemoptysis ABDOMEN: Denies acute: abdominal pain, Nausea, Vomiting, diarrhea, melena , hematemesis, hematochezia SKIN: Denies acute: rash, redness, lesions, itchiness. EXTREMITIES: Denies acute: calf pain, numbness, tingling, weakness, denies pain in extremity. Denies acute: Low back pain. Neuro: Denies acute: focal neurological deficit, motor or sensory focal neurological deficit, tremors, seizure like activity, confusion, dizziness, change in mental status, loss of bowel or bladder function, cauda equina like symptoms. : Denies acute: dysuria, hematuria, flank pain, increase in urinary frequency. PSYCH: Denies acute: hallucination, suicidal ideation, homicidal ideation. FEMALE: Denies acute: abnormal vaginal bleeding, foul odor, unusual discharge. PAST MEDICAL HISTORY: High Lipids, HTN Surgical History: Cholecystectomy AMPHIBIOUS OPERATIONS OFFICER History: Denies all AMPHIBIOUS OPERATIONS OFFICER Hx Family History Family History: Reviewed,noncontributory to illness, Unknown Social History Smoker: Non-Smoker Alcohol: Denies ETOH Use Drugs: Denies Drug Use Lives In: Home Patient Family History: Arthritis G8 MOTHER Cardiovascular disease G8 FATHER FH: gallbladder disease G8 FATHER FH: lung cancer G8 MOTHER Allergies: Coded Allergies: NO KNOWN ALLERGIES (Unverified , 01/26/22) Home Meds Active Scripts Cephalexin (KEFLEX CAPSULE) 250 Mg Cp, 500 MG PO TID for 10 Days, #30 CAP Prov:ARMANDO LIU MD 05/12/24 Losartan Potassium (Losartan Potassium) 50 Mg Tab, 1 TAB PO DAILY, #30 TAB 5 Refills Prov:ARMANDO LIU MD 05/12/24 Amlodipine Besylate (Amlodipine Besylate) 10 Mg Tab, 1 TAB PO DAILY, #30 TAB Prov:ZEKE GARSIA 04/14/24 Hydrocodone-Acetaminophen (Hydrocodone Bitartrate/AC 5-325 mg) 1 Tab Tab, 1 TAB PO TID PRN, #20 TAB Prov:LILY MITCHELL MD 01/31/22 Metronidazole (Flagyl) 500 Mg Tab, 500 MG PO TID, #20 TAB Prov:LILY MITCHELL MD 01/31/22 Levofloxacin (Levaquin) 500 Mg Tab, 500 MG PO DAILY, #7 TAB Prov:LILY MITCHELL MD 01/31/22 Reported Medications Amlodipine Besylate (Amlodipine Besylate) 5 Mg Tab, 10 MG PO DAILY for 30 Days, MG 01/27/22 Vital Signs Vital Signs Date Time Temp Pulse Resp B/P (MAP) Pulse Ox O2 Delivery O2 Flow Rate FiO2 12/29/24 21:30 97 14 99 Room Air* 0 21 12/29/24 21:29 97.9 160/71 (100) 97.9 Physical Exam 64 years old woman, well nourished well developed. No apparent distress HEENT-atraumatic normocephalic Heart-regular rate and rhythm Lungs clear to auscultate bilaterally Abdomen soft nontender nondistended Musculoskeletal-no edema cyanosis Neuro-AO x3, no focal deficits Results Labs Test 12/29/24 20:47 12/29/24 19:21 12/29/24 18:19 Range/Units Troponin I High Sensitivity < 3 L </=34 ng/L Blood Gas Specimen Type Arterial Blood Gas Sample Site Right brachial Blood Gas Patient Temperature 37.0 Arterial Blood Date Drawn [id number] Arterial Blood pH 7.453 H 7.350-7.450 Arterial Blood Partial Pressure CO2 41.5 32.0-45.0 mmHg Arterial Blood Partial Pressure O2 76.0 L 83.0-108.0 mmHg Arterial Blood HCO3 28.4 H 21.0-28.0 mmol/L Arterial Blood Oxygen Saturation 95.4 94.0-98.0 % Arterial Blood Base Excess 4.1 H -2.0-3.0 mmol/L Arterial Blood Oxyhemoglobin 94.6 94.0-98.0 % Arterial Blood Carboxyhemoglobin 0.5 0.5-1.5 % Arterial Blood Methemoglobin 0.3 0.0-1.5 % Yuval Test N/a Blood Gas Total Hemoglobin 14.40 12.0-16.0 g/dL Blood Gas Modality Room air FiO2 % 21.0 White Blood Count 7.9 4.4-10.8 10^3/uL Red Blood Count 4.85 4.0-5.20 10^6/uL Hemoglobin 14.5 12.2-16.2 g/dL Hematocrit 42.3 36.0-46.0 % Mean Corpuscular Volume 87.3 80.0-100.0 fL Mean Corpuscular Hemoglobin 30.0 28.0-32.0 pg Mean Corpuscular Hemoglobin Concent 34.3 32.0-36.0 g/dL Red Cell Distribution Width 13.1 11.8-14.3 % Platelet Count 352 140-450 10^3/uL Mean Platelet Volume 6.8 L 6.9-10.8 fL Neutrophils (%) (Auto) 52.4 37.0-80.0 % Lymphocytes (%) (Auto) 39.5 10.0-50.0 % Monocytes (%) (Auto) 6.2 0.0-12.0 % Eosinophils (%) (Auto) 1.1 0.0-7.0 % Basophils (%) (Auto) 0.8 0.0-2.0 % Neutrophils # (Auto) 4.1 1.6-8.6 10 ^3/uL Lymphocytes # (Auto) 3.1 0.4-5.4 10 ^3/uL Monocytes # (Auto) 0.5 0-1.3 10 ^3/uL Eosinophils # (Auto) 0.1 0-0.8 10 ^3/uL Basophils # (Auto) 0.1 0-0.2 10 ^3/uL Nucleated Red Blood Cells 0.8 % D-Dimer, Quantitative < 0.19 0.0-0.49 mg/L FEU Sodium Level 140 136-145 mmol/L Potassium Level 3.5 3.5-5.1 mmol/L Chloride Level 104 98-107 mmol/L Carbon Dioxide Level 27 20-31 mmol/L Anion Gap 9 5-15 Blood Urea Nitrogen 10 9-23 mg/dL Creatinine 0.67 0.550-1.02 mg/dL Glomerular Filtration Rate Calc 98 >90 mL/min BUN/Creatinine Ratio 14.9 10.0-20.0 Serum Glucose 144 H 74-106 mg/dL Calcium Level 10.1 8.7-10.4 mg/dL Magnesium Level 2.3 1.6-2.6 mg/dL Total Bilirubin 0.4 0.2-1.0 mg/dL Aspartate Amino Transferase (AST) 19 13-40 U/L Alanine Aminotransferase (ALT) 18 7-40 U/L Alkaline Phosphatase 126 H 46-116 U/L B-Type Natriuretic Peptide 14.06 0-100 pg/mL Total Protein 7.9 5.7-8.2 g/dL Albumin 4.9 H 3.2-4.8 g/dL Thyroid Stimulating Hormone (TSH) 2.17 0.55-4.78 uIU/mL Primary Diagnosis Chest pain rule out ACS Plan Patient says that chest pain is intermittent and persistent Currently chest pain resolved Troponin negative x3 Check EKG Check echo of the heart to rule out abnormal heart motion cardiac diet SBP is elevated Resume amlodipine 10 mg daily Losartan 100 mg daily Atorvastatin 20 mg daily Full code Lovenox for DVT prophylaxis No GI prophylaxis Plan discussed with: Patient Date of Service: Dec 29, 2024 Billing Provider: MANJU FUNES MD Common Visit Codes: [id number] INP/OBS CARE (MOD) MANJU FUNES MD Dec 29, 2024 21:41
[2024-12-29] MEDS ORDERED: DOCUSATE SOD 100 MG CAP PO PRN (21:45)
[2024-12-29] MEDS ORDERED: HYDROmorphone HCL 2 MG/ML VL/or syr IV PRN (21:45)
[2024-12-29] MEDS ORDERED: MORPHINE SULFATE INJ 2 MG/ml SYRG IV PRN (21:45)
[2024-12-29] MEDS ORDERED: HYDROcodone-ACET 5/325MG TAB PO PRN (21:45)
[2024-12-29] MEDS ORDERED: ONDANSETRON HCL 4 MG/2 ML VIAL IV PRN (21:45)
[2024-12-29] MEDS ORDERED: NITROGLYCERIN 0.4 MG SL TAB SL PRN (21:45)
[2024-12-29] MEDS: SODIUM CHLOR 0.9% PF (SALINE LOCK) 10ML VIAL/SYR IV SCH (22:05)
[2024-12-29 22:24] VITALS: BP 151/80; PULSE 87; RESP 18; TEMP 97.7; O2SAT 97
[2024-12-29] MEDS: ACETAMINOPHEN 325 MG TAB PO PRN (23:42)
[2024-12-30] VITALS (9 sets, daily range): BP systolic 135–166; BP diastolic 64–78; PULSE 74–89; RESP 16–20; TEMP 97.8–98.4; O2SAT 94–98
[2024-12-30 07:44] LABS: Alanine Aminotransferase 16 U/L (7-40); Alkaline Phosphatase 111 U/L (46-116); Anion Gap 9 (5-15); BUN/Creatinine Ratio 10.8 (10.0-20.0); Calcium 9.8 mg/dL (8.7-10.4); Carbon Dioxide 27 mmol/L (20-31); Chloride 106 mmol/L (98-107); Magnesium 2.5 mg/dL (1.6-2.6); Potassium 3.6 mmol/L (3.5-5.1); Sodium 142 mmol/L (136-145); Total Protein 7.4 g/dL (5.7-8.2)
[2024-12-30 07:45] LABS: Albumin 4.6 g/dL (3.2-4.8); Aspartate Aminotransferase 15 U/L (13-40); Blood Urea Nitrogen 7 mg/dL (9-23); Glucose 110 mg/dL (74-106)
[2024-12-30 07:46] LABS: Bilirubin, Total 0.5 mg/dL (0.2-1.0)
[2024-12-30 07:52] LABS: Basophils # (auto) 0 10 ^3/uL (0-0.2); Basophils % (auto) 0.6 % (0.0-2.0); Eosinophils # (auto) 0 10 ^3/uL (0-0.8); Eosinophils % (auto) 0.8 % (0.0-7.0); Hematocrit 41.9 % (36.0-46.0); Hemoglobin 14.2 g/dL (12.2-16.2); Lymphocytes # (auto) 1.4 10 ^3/uL (0.4-5.4); Lymphocytes % (auto) 23.9 % (10.0-50.0); Mean Corpuscular Hemoglobin 29.9 pg (28.0-32.0); Mean Corpuscular Hgb Conc. 33.9 g/dL (32.0-36.0); Mean Corpuscular Volume 88.1 fL (80.0-100.0); Monocytes # (auto) 0.3 10 ^3/uL (0-1.3); Monocytes % (auto) 5.7 % (0.0-12.0); Neutrophils # (auto) 4.1 10 ^3/uL (1.6-8.6); Nucleated Red Blood Cells % 0.1 %; Platelet Count (auto) 305 10^3/uL (140-450); Red Blood Cells 4.75 10^6/uL (4.0-5.20); Red Cell Distribution Width 13.2 % (11.8-14.3)
[2024-12-30] MEDS: amLODIPine BESYLATE 5 MG TAB PO SCH (09:06)
[2024-12-30] MEDS: ATORVASTATIN 20 MG TAB PO SCH (09:07)
[2024-12-30] MEDS: ENOXAPARIN SOD 40 MG/0.4 ML SYRINGE SC SCH (09:08)
[2024-12-30] MEDS: LOSARTAN POTASSIUM 50 MG TAB PO SCH (09:08)
--- NOTE | 2024-12-30 12:31 | DVHPN2 ---
Reviewed: Care Plan, H&P, Labs, Medications, Previous Orders, Radiology Changes from previous H/P or p: No Changes Objective Vitals Vital Signs Date Time Temp Pulse Resp B/P (MAP) Pulse Ox O2 Delivery O2 Flow Rate FiO2 12/30/24 09:08 136/74 12/30/24 08:59 97.8 74 18 98 97.8 12/30/24 07:30 Room Air* 0 21 Intake/Output Intake and Output 12/30/24 07:00 Intake Total 1280 ml Balance 1280 ml Intake Oral 1280 ml # Voids 3 Medications Current Medications Medications Dose Ordered Sig/Demond Route Start Time Stop Time Status Last Admin Dose Admin Atorvastatin Calcium 20 mg DAILY PO 12/30/24 10:00 12/30/24 09:07 20 MG Losartan Potassium 100 mg DAILY PO 12/30/24 10:00 12/30/24 09:08 100 MG Amlodipine Besylate 10 mg DAILY PO 12/30/24 10:00 12/30/24 09:06 10 MG Sodium Chloride 10 ml Q8HR IV 12/29/24 22:00 12/30/24 05:59 10 ML Docusate Sodium 100 mg BIDPRN PRN PO 12/29/24 21:45 Acetaminophen 650 mg Q6HP PRN PO 12/29/24 21:45 12/29/24 23:42 650 MG Acetaminophen/ Hydrocodone Bitart 1 tab Q4HP PRN PO 12/29/24 21:45 Hydromorphone HCl 0.5 mg Q4HP PRN IV 12/29/24 21:45 Ondansetron HCl 4 mg Q4HP PRN IV 12/29/24 21:45 Enoxaparin Sodium 40 mg DAILY SC 12/30/24 10:00 Nitroglycerin 0.4 mg Q5MINP PRN SL 12/29/24 21:45 Morphine Sulfate 2 mg Q30M PRN IV 12/29/24 21:45 Laboratory Results Laboratory Tests 12/30/24 06:33 Chemistry Test 12/29/24 18:19 12/30/24 06:33 Albumin 4.9 g/dL (3.2-4.8) H 4.6 g/dL (3.2-4.8) Calcium Level 10.1 mg/dL (8.7-10.4) 9.8 mg/dL (8.7-10.4) Magnesium Level 2.3 mg/dL (1.6-2.6) 2.5 mg/dL (1.6-2.6) Total Protein 7.9 g/dL (5.7-8.2) 7.4 g/dL (5.7-8.2) Coagulation Test 12/29/24 18:19 D-Dimer, Quantitative < 0.19 mg/L FEU (0.0-0.49) Cardiac Markers Test 12/29/24 18:19 B-Type Natriuretic Peptide 14.06 pg/mL (0-100) LFT Test 12/29/24 18:19 12/30/24 06:33 Alanine Aminotransferase (ALT) 18 U/L (7-40) 16 U/L (7-40) Alkaline Phosphatase 126 U/L (46-116) H 111 U/L (46-116) Aspartate Amino Transferase (AST) 19 U/L (13-40) 15 U/L (13-40) Total Bilirubin 0.4 mg/dL (0.2-1.0) 0.5 mg/dL (0.2-1.0) HgA1c, TSH Test 12/29/24 18:19 Thyroid Stimulating Hormone (TSH) 2.17 uIU/mL (0.55-4.78) Blood Gas Results Test 12/29/24 19:21 Arterial Blood pH 7.453 (7.350-7.450) FiO2 % 21.0 Labs and/or images reviewed: Labs reviewed by me, Image(s) reviewed by me Assessment/Plan Assessment/Plan Acute chest pain rule out coronary artery disease: Troponin negative x3, treatment per ACS protocol cardiology consult for Dr. Cordova Hypertension: Amlodipine Coreg Hypercholesterolemia: Lipitor Thyroid function test normal Echocardiogram report pending Plan discussed with: Patient Date of Service: Dec 30, 2024 Billing Provider: LILY MITCHELL MD Common Visit Codes: [id number] INP/OBS CARE(HIGH) LILY MITCHELL MD Dec 30, 2024 12:31
[2024-12-30 12:42] LABS: Triglycerides 62 mg/dL (< 150)
[2024-12-30 12:43] LABS: LDL Cholesterol 61 mg/dL (< 100)
[2024-12-30 12:44] LABS: Cholesterol 130 mg/dL (< 200); HDL Cholesterol 60 mg/dL (40-59)
--- NOTE | 2024-12-30 16:57 | DVHSR ---
APPROVED REPORT EXAM: Two-dimensional and M-mode echocardiogram with Doppler and color Doppler. Blood Pressure: 141/69 mmHg INDICATION Chest Pain RISK FACTORS Height: 4'9", Weight: 109 DIMENSIONS LVDd3.6 (3.8-5.7cm)LA (2D)3.5 (1.9-4.0cm)Aortic Root2.3 (2.0-3.7cm) LVDs2.3 (2.5-4.0cm)LA (MM) (1.9-4.0cm)Aortic Cusp Exc1.6 (1.5-2.0cm) EF (%) 66.0 (55-70%)Rt. Atrium3.5 (1.9-4.0cm)Asc. Aorta cm IVSd0.9 (0.7-1.1cm)RV (D)2.7 (1.8-2.4cm) PWd0.7 (0.7-1.1cm) Mitral Valve MitralMitral Stenosis E wave0.77m/sMV Mean GR.mmHg A wave1.05m/sMV Peak GR.mmHg E/A ratio0.72D MVAcm2 DECEL [id number] 1/2 Timems Aortic Valve Aortic ValveAortic Stenosis V10.96m/Leila Mean GR.3mmHg V21.11m/Leila Peak GR.5mmHg LVOT Diameter1.6 (1.8-2.4cm)Doppler AVA1.74cm2 Pulmonic Valve V20.70m/s Other Information Quality : Technically LimitedRhythm : Conclusion LVEF normal at 50-55%, mild LVH, mild diastolic dysfunction Right ventricle size and function normal Valves not well visualized but grossly normal
--- NOTE | 2024-12-30 18:10 | DVHINCON2 ---
Date Seen: Dec 30, 2024 Referring Physician MD Calixto Reason for Consultation Chest pain History of Present Illness This is a 64-year-old female patient who presents to the emergency room with chief complaint of chest pain. The patient reports that the chest pain began at approximately 5:40 p.m. yesterday while walking. She describes the pain as unprovoked, intermittent, sharp in nature, left-sided with radiation to her back. Associated symptoms include shortness of breath. The patient became worried and decided to come to the emergency room for further evaluation. Initial twelve lead electrocardiogram reveals sinus tachycardia without any significant ST segment changes. Serial troponin levels have been negative. Significant past medical history includes hypertension, dyslipidemia, pre diabetes, and kidney stones. Patient is unsure of any pertinent family history given that she was adopted. Past Medical History Past medical history reviewed. No other significant than mentioned above. Past Surgical History Cholecystectomy Family History: Arthritis G8 MOTHER Cardiovascular disease G8 FATHER FH: gallbladder disease G8 FATHER FH: lung cancer G8 MOTHER Family History Patient unsure family history given that she was adopted Social History Patient has a five pack-year history, quit smoking over 20 years ago Denies any illicit drug use Denies any alcohol use Allergies: Coded Allergies: NO KNOWN ALLERGIES (Unverified , 01/26/22) Home Meds Active Scripts Amlodipine Besylate (Amlodipine Besylate) 10 Mg Tab, 1 TAB PO DAILY, #30 TAB Prov:ZEKE GARSIA 04/14/24 Reported Medications Atorvastatin Calcium (ATORVASTATIN CALCIUM) 20 Mg Tab, 1 TAB PO DAILY for 30 Days, #30 12/30/24 Losartan Potassium (Losartan Potassium) 100 Mg Tab, 1 TAB PO DAILY for 30 Days, #30 12/30/24 Home Meds Home medications reviewed. Current Medications Current Medications Medications (Trade) Dose Ordered Sig/Demond Route PRN Reason Start Time Stop Time Status Last Admin Atorvastatin Calcium (Lipitor) 20 mg DAILY PO 12/30/24 10:00 12/30/24 09:07 Losartan Potassium (Cozaar Tablet) 100 mg DAILY PO 12/30/24 10:00 12/30/24 09:08 Amlodipine Besylate (Norvasc Tablet) 10 mg DAILY PO 12/30/24 10:00 12/30/24 09:06 Sodium Chloride (Saline Lock Ns) 10 ml Q8HR IV 12/29/24 22:00 12/30/24 17:22 Docusate Sodium (Colace Capsule) 100 mg BIDPRN PRN PO FOR CONSTIPATION 12/29/24 21:45 Acetaminophen (Tylenol Tablet) 650 mg Q6HP PRN PO PAIN SCALE 1-3 OR TEMP>100.4 12/29/24 21:45 12/29/24 23:42 Acetaminophen/ Hydrocodone Bitart ([place] 5/325MG Tab) 1 tab Q4HP PRN PO MODERATE PAIN (4-6 PAIN SCALE) 12/29/24 21:45 Hydromorphone HCl (Dilaudid Injection) 0.5 mg Q4HP PRN IV SEVERE PAIN (7-10 PAIN SCALE) 12/29/24 21:45 Ondansetron HCl (Zofran) 4 mg Q4HP PRN IV NAUSEA / VOMITING 12/29/24 21:45 Enoxaparin Sodium (Lovenox) 40 mg DAILY SC 12/30/24 10:00 Nitroglycerin (Ntrostat Sublingual) 0.4 mg Q5MINP PRN SL FOR CHEST PAIN 12/29/24 21:45 Morphine Sulfate 2 mg Q30M PRN IV FOR CHEST PAIN 12/29/24 21:45 Review of Systems Constitutional: No symptom reported Ears, Nose, & Throat: No symptom reported Eyes: No symptom reported Neurological: No symptoms reported Pulmonary/Respiratory: Shortness of breath Cardiovascular: Chest pain Gastrointestinal: No symptom reported Genitourinary: No symptom reported Musculoskeletal: No symptom reported Skin: No symptom reported Psychiatric: No symptom reported Endocrine: No symptom reported Hematologic/Lymphatic: No symptom reported Vital Signs Vital Signs Date Time Temp Pulse Resp B/P (MAP) Pulse Ox O2 Delivery O2 Flow Rate FiO2 12/30/24 17:44 149/78 (101) 12/30/24 17:04 98.4 89 20 94 98.4 12/30/24 07:30 Room Air* 0 21 Physical Exam General Appearance: Cooperative. Well-developed. Well-nourished. No acute distress. Pulmonary/Respiratory: Clear, bilateral breaths sounds. Cardiovascular/Chest: Regular rate and rhythm. Peripheral Pulses: 2+ Radial (R). 2+ Radial (L). 2+ Pedal (R). 2+ Pedal (L) Abdominal Exam: Normal bowel sounds. Ankle Exam: Negative ankle edema Lower extremities: Negative lower extremity edema Neuro/Mental Status: A/OX4, coherent. Thoughts/Psych: Normal thought pattern. Appropriate mood and affect. Good judgment and insight. Appearance: No acute distress. Skin Exam: Normal inspection. Normal color. Warm and dry. Labs/Diagnostic Data Labs Test 12/30/24 06:33 12/29/24 20:47 12/29/24 19:21 12/29/24 18:19 Range/Units White Blood Count 6.0 4.4-10.8 10^3/uL Red Blood Count 4.75 4.0-5.20 10^6/uL Hemoglobin 14.2 12.2-16.2 g/dL Hematocrit 41.9 36.0-46.0 % Mean Corpuscular Volume 88.1 80.0-100.0 fL Mean Corpuscular Hemoglobin 29.9 28.0-32.0 pg Mean Corpuscular Hemoglobin Concent 33.9 32.0-36.0 g/dL Red Cell Distribution Width 13.2 11.8-14.3 % Platelet Count 305 140-450 10^3/uL Mean Platelet Volume 6.8 L 6.9-10.8 fL Neutrophils (%) (Auto) 69.0 37.0-80.0 % Lymphocytes (%) (Auto) 23.9 10.0-50.0 % Monocytes (%) (Auto) 5.7 0.0-12.0 % Eosinophils (%) (Auto) 0.8 0.0-7.0 % Basophils (%) (Auto) 0.6 0.0-2.0 % Neutrophils # (Auto) 4.1 1.6-8.6 10 ^3/uL Lymphocytes # (Auto) 1.4 0.4-5.4 10 ^3/uL Monocytes # (Auto) 0.3 0-1.3 10 ^3/uL Eosinophils # (Auto) 0 0-0.8 10 ^3/uL Basophils # (Auto) 0 0-0.2 10 ^3/uL Nucleated Red Blood Cells 0.1 % Sodium Level 142 136-145 mmol/L Potassium Level 3.6 3.5-5.1 mmol/L Chloride Level 106 98-107 mmol/L Carbon Dioxide Level 27 20-31 mmol/L Anion Gap 9 5-15 Blood Urea Nitrogen 7 L 9-23 mg/dL Creatinine 0.65 0.550-1.02 mg/dL Glomerular Filtration Rate Calc 99 >90 mL/min BUN/Creatinine Ratio 10.8 10.0-20.0 Serum Glucose 110 H 74-106 mg/dL Calcium Level 9.8 8.7-10.4 mg/dL Magnesium Level 2.5 1.6-2.6 mg/dL Total Bilirubin 0.5 0.2-1.0 mg/dL Aspartate Amino Transferase (AST) 15 13-40 U/L Alanine Aminotransferase (ALT) 16 7-40 U/L Alkaline Phosphatase 111 46-116 U/L Total Protein 7.4 5.7-8.2 g/dL Albumin 4.6 3.2-4.8 g/dL Triglycerides Level 62 < 150 mg/dL Cholesterol Level 130 < 200 mg/dL LDL Cholesterol 61 < 100 mg/dL HDL Cholesterol 60 H 40-59 mg/dL Troponin I High Sensitivity < 3 L </=34 ng/L Blood Gas Specimen Type Arterial Blood Gas Sample Site Right brachial Blood Gas Patient Temperature 37.0 Arterial Blood Date Drawn [id number] Arterial Blood pH 7.453 H 7.350-7.450 Arterial Blood Partial Pressure CO2 41.5 32.0-45.0 mmHg Arterial Blood Partial Pressure O2 76.0 L 83.0-108.0 mmHg Arterial Blood HCO3 28.4 H 21.0-28.0 mmol/L Arterial Blood Oxygen Saturation 95.4 94.0-98.0 % Arterial Blood Base Excess 4.1 H -2.0-3.0 mmol/L Arterial Blood Oxyhemoglobin 94.6 94.0-98.0 % Arterial Blood Carboxyhemoglobin 0.5 0.5-1.5 % Arterial Blood Methemoglobin 0.3 0.0-1.5 % Yuval Test N/a Blood Gas Total Hemoglobin 14.40 12.0-16.0 g/dL Blood Gas Modality Room air FiO2 % 21.0 D-Dimer, Quantitative < 0.19 0.0-0.49 mg/L FEU B-Type Natriuretic Peptide 14.06 0-100 pg/mL Thyroid Stimulating Hormone (TSH) 2.17 0.55-4.78 uIU/mL Assessment Chest pain, rule out coronary ischemia Hypertension Hyperlipidemia Prediabetes Kidney stones History of tobacco use Plan/Recommendation We will continue with the following plan/recommendations (Dr. Cordova): * Transthoracic echocardiogram reveals EF of 50-55% * Chest pain protocol * HEART score: 3 points (low score) * Blood pressure control * Lipid-lowering agent * Close Cardiac surveillance * Nuclear stress test Patient seen and examined at bedside with . The patient was offered a nuclear stress test. Procedure discussed with the patient. The patient was agreeable. The patient will undergo a nuclear stress test on 01/02/2025. In the meantime, continue with medical management and close cardiac surveillance. Thank you for allowing us to care for this patient. Please call with any questions or concerns. Critical care time spent: 43 minutes This medical document was created using an electronic medical record system with voice recognition software and computerized dictation system. Although this document has been carefully reviewed, there might still be some phonetic and typographical errors. Occasional wrong-word or ``sound-alike substitutions may have occurred due to the inherent limitations of voice recognition software. These areas are purely typographical due to imperfections of the software programs and do not reflect any compromise in the patient's medical care. Please read the chart carefully and recognize, using context, where these substitutions have occurred. Plan discussed with: Patient NYHA Physical activity limitations: NA Date of Service: Dec 30, 2024 Billing Provider: MARILU OROPEZA Cardiology Common Codes: [id number] INP/OBS CARE (High) Cardiology Consultation Codes: [id number] CONSULT <45MIN MARILU OROPEZA Dec 30, 2024 18:10
--- NOTE | 2024-12-30 21:55 | DVHINCON2 ---
Date Seen: Dec 30, 2024 Referring Physician MD [place] Reason for Consultation Chest pain History of Present Illness This is a 64-year-old female with a past medical history of hypertension, dyslipidemia, prediabetes, and kidney stones who presents to the emergency room with a complaint of chest pain. Patient reports that the chest pain began at approximately 5:40 p.m. yesterday while walking She describes the pain as unpr ovoked, intermittent, sharp in nature, left-sided with radiation to her back. Associated symptoms include shortness of breath. The patient became worried and decided to come to the emergency room for further evaluation. Initial twelve lead electrocardiogram reveals sinus tachycardia without any significant ST segment changesSerial troponin levels have been negative. Chest x-ray showed NAD. Patient is unsure of any pertinent family history given that she was adopted. Patient was admitted to the hospital. I am asked to consult on this patient. Past Medical History Past medical history reviewed. No other significant than mentioned above. Past Surgical History Cholecystectomy Family History: Arthritis G8 MOTHER Cardiovascular disease G8 FATHER FH: gallbladder disease G8 FATHER FH: lung cancer G8 MOTHER Allergies: Coded Allergies: NO KNOWN ALLERGIES (Unverified , 01/26/22) Home Meds Active Scripts Amlodipine Besylate (Amlodipine Besylate) 10 Mg Tab, 1 TAB PO DAILY, #30 TAB Prov:ZEKE GARSIA 04/14/24 Reported Medications Atorvastatin Calcium (ATORVASTATIN CALCIUM) 20 Mg Tab, 1 TAB PO DAILY for 30 Days, #30 12/30/24 Losartan Potassium (Losartan Potassium) 100 Mg Tab, 1 TAB PO DAILY for 30 Days, #30 12/30/24 Current Medications Current Medications Medications (Trade) Dose Ordered Sig/Demond Route PRN Reason Start Time Stop Time Status Last Admin Atorvastatin Calcium (Lipitor) 20 mg DAILY PO 12/30/24 10:00 12/30/24 09:07 Losartan Potassium (Cozaar Tablet) 100 mg DAILY PO 12/30/24 10:00 12/30/24 09:08 Amlodipine Besylate (Norvasc Tablet) 10 mg DAILY PO 12/30/24 10:00 12/30/24 09:06 Sodium Chloride (Saline Lock Ns) 10 ml Q8HR IV 12/29/24 22:00 12/30/24 17:22 Docusate Sodium (Colace Capsule) 100 mg BIDPRN PRN PO FOR CONSTIPATION 12/29/24 21:45 Acetaminophen (Tylenol Tablet) 650 mg Q6HP PRN PO PAIN SCALE 1-3 OR TEMP>100.4 12/29/24 21:45 12/29/24 23:42 Acetaminophen/ Hydrocodone Bitart ([place] 5/325MG Tab) 1 tab Q4HP PRN PO MODERATE PAIN (4-6 PAIN SCALE) 12/29/24 21:45 Hydromorphone HCl (Dilaudid Injection) 0.5 mg Q4HP PRN IV SEVERE PAIN (7-10 PAIN SCALE) 12/29/24 21:45 Ondansetron HCl (Zofran) 4 mg Q4HP PRN IV NAUSEA / VOMITING 12/29/24 21:45 Enoxaparin Sodium (Lovenox) 40 mg DAILY SC 12/30/24 10:00 Nitroglycerin (Ntrostat Sublingual) 0.4 mg Q5MINP PRN SL FOR CHEST PAIN 12/29/24 21:45 Morphine Sulfate 2 mg Q30M PRN IV FOR CHEST PAIN 12/29/24 21:45 Review of Systems Constitutional: No symptom reported Ears, Nose, & Throat: No symptom reported Eyes: No symptom reported Neurological: No symptoms reported Pulmonary/Respiratory: Shortness of breath Cardiovascular: Chest pain Gastrointestinal: No symptom reported Genitourinary: No symptom reported Musculoskeletal: No symptom reported Skin: No symptom reported Psychiatric: No symptom reported Endocrine: No symptom reported Hematologic/Lymphatic: No symptom reported Vital Signs Vital Signs Date Time Temp Pulse Resp B/P (MAP) Pulse Ox O2 Delivery O2 Flow Rate FiO2 12/30/24 17:44 149/78 (101) 12/30/24 17:04 98.4 89 20 94 98.4 12/30/24 07:30 Room Air* 0 21 Physical Exam GENERAL: Alert and oriented x 3. No acute distress. EYES: PERRL, EOMI. Anicteric. HENT: Moist mucous membranes. LUNGS: Clear to auscultation bilaterally. CARDIOVASCULAR: Regular rate and rhythm. ABDOMEN: Soft, nontender and nondistended. EXTREMITIES: No edema. NEUROLOGIC: No focal neurological deficits. SKIN: Warm, dry. Labs/Diagnostic Data Labs Test 12/30/24 06:33 12/29/24 20:47 12/29/24 19:21 4/24/25 18:19 Range/Units White Blood Count 6.0 4.4-10.8 10^3/uL Red Blood Count 4.75 4.0-5.20 10^6/uL Hemoglobin 14.2 12.2-16.2 g/dL Hematocrit 41.9 36.0-46.0 % Mean Corpuscular Volume 88.1 80.0-100.0 fL Mean Corpuscular Hemoglobin 29.9 28.0-32.0 pg Mean Corpuscular Hemoglobin Concent 33.9 32.0-36.0 g/dL Red Cell Distribution Width 13.2 11.8-14.3 % Platelet Count 305 140-450 10^3/uL Mean Platelet Volume 6.8 L 6.9-10.8 fL Neutrophils (%) (Auto) 69.0 37.0-80.0 % Lymphocytes (%) (Auto) 23.9 10.0-50.0 % Monocytes (%) (Auto) 5.7 0.0-12.0 % Eosinophils (%) (Auto) 0.8 0.0-7.0 % Basophils (%) (Auto) 0.6 0.0-2.0 % Neutrophils # (Auto) 4.1 1.6-8.6 10 ^3/uL Lymphocytes # (Auto) 1.4 0.4-5.4 10 ^3/uL Monocytes # (Auto) 0.3 0-1.3 10 ^3/uL Eosinophils # (Auto) 0 0-0.8 10 ^3/uL Basophils # (Auto) 0 0-0.2 10 ^3/uL Nucleated Red Blood Cells 0.1 % Sodium Level 142 136-145 mmol/L Potassium Level 3.6 3.5-5.1 mmol/L Chloride Level 106 98-107 mmol/L Carbon Dioxide Level 27 20-31 mmol/L Anion Gap 9 5-15 Blood Urea Nitrogen 7 L 9-23 mg/dL Creatinine 0.65 0.550-1.02 mg/dL Glomerular Filtration Rate Calc 99 >90 mL/min BUN/Creatinine Ratio 10.8 10.0-20.0 Serum Glucose 110 H 74-106 mg/dL Calcium Level 9.8 8.7-10.4 mg/dL Magnesium Level 2.5 1.6-2.6 mg/dL Total Bilirubin 0.5 0.2-1.0 mg/dL Aspartate Amino Transferase (AST) 15 13-40 U/L Alanine Aminotransferase (ALT) 16 7-40 U/L Alkaline Phosphatase 111 46-116 U/L Total Protein 7.4 5.7-8.2 g/dL Albumin 4.6 3.2-4.8 g/dL Triglycerides Level 62 < 150 mg/dL Cholesterol Level 130 < 200 mg/dL LDL Cholesterol 61 < 100 mg/dL HDL Cholesterol 60 H 40-59 mg/dL Troponin I High Sensitivity < 3 L </=34 ng/L Blood Gas Specimen Type Arterial Blood Gas Sample Site Right brachial Blood Gas Patient Temperature 37.0 Arterial Blood Date Drawn [id number] Arterial Blood pH 7.453 H 7.350-7.450 Arterial Blood Partial Pressure CO2 41.5 32.0-45.0 mmHg Arterial Blood Partial Pressure O2 76.0 L 83.0-108.0 mmHg Arterial Blood HCO3 28.4 H 21.0-28.0 mmol/L Arterial Blood Oxygen Saturation 95.4 94.0-98.0 % Arterial Blood Base Excess 4.1 H -2.0-3.0 mmol/L Arterial Blood Oxyhemoglobin 94.6 94.0-98.0 % Arterial Blood Carboxyhemoglobin 0.5 0.5-1.5 % Arterial Blood Methemoglobin 0.3 0.0-1.5 % Yuval Test N/a Blood Gas Total Hemoglobin 14.40 12.0-16.0 g/dL Blood Gas Modality Room air FiO2 % 21.0 D-Dimer, Quantitative < 0.19 0.0-0.49 mg/L FEU B-Type Natriuretic Peptide 14.06 0-100 pg/mL Thyroid Stimulating Hormone (TSH) 2.17 0.55-4.78 uIU/mL Assessment Chest pain. Hypertension. Hyperlipidemia. Prediabetes. Kidney stones. Plan/Recommendation I agree with your ongoing assessment and care of plan. Patient has been seen by Lorie Smith NP on my behalf, her and I discussed the plan with the patient. Transthoracic echocardiogram reveals EF of 50-55%. Chest pain protocol. HEART score: 3 points (low score). Blood pressure control. Lipid-lowering agent. Close Cardiac surveillance. Additional plan as per the hospital course. Plan discussed with: Patient NYHA Physical activity limitations: NA Date of Service: Dec 30, 2024 Billing Provider: MAI BEE MD Cardiology Common Codes: [id number] INP/OBS CARE (High) Cardiology Consultation Codes: [id number] CONSULT <45MIN MAI BEE MD Dec 30, 2024 18:38
[2024-12-31] VITALS (8 sets, daily range): BP systolic 112–143; BP diastolic 60–78; PULSE 71–90; RESP 16–18; TEMP 97.6–98.3; O2SAT 96–100
[2024-12-31 06:38] LABS: Basophils # (auto) 0 10 ^3/uL (0-0.2); Basophils % (auto) 0.3 % (0.0-2.0); Eosinophils # (auto) 0.1 10 ^3/uL (0-0.8); Eosinophils % (auto) 0.7 % (0.0-7.0); Hemoglobin 14.2 g/dL (12.2-16.2); Lymphocytes # (auto) 1.7 10 ^3/uL (0.4-5.4); Lymphocytes % (auto) 21.6 % (10.0-50.0); Mean Corpuscular Hgb Conc. 33.9 g/dL (32.0-36.0); Mean Corpuscular Volume 88.6 fL (80.0-100.0); Monocytes # (auto) 0.4 10 ^3/uL (0-1.3); Monocytes % (auto) 5.5 % (0.0-12.0); Neutrophils # (auto) 5.7 10 ^3/uL (1.6-8.6); Neutrophils % (auto) 71.9 % (37.0-80.0); Nucleated Red Blood Cells % 0.1 %; Platelet Count (auto) 306 10^3/uL (140-450); Red Blood Cells 4.74 10^6/uL (4.0-5.20)
[2024-12-31 06:44] LABS: Alanine Aminotransferase 15 U/L (7-40); Albumin 4.4 g/dL (3.2-4.8); Alkaline Phosphatase 103 U/L (46-116); Anion Gap 9 (5-15); Aspartate Aminotransferase 15 U/L (13-40); BUN/Creatinine Ratio 20.3 (10.0-20.0); Blood Urea Nitrogen 16 mg/dL (9-23); Calcium 9.8 mg/dL (8.7-10.4); Carbon Dioxide 28 mmol/L (20-31); Chloride 102 mmol/L (98-107); Glucose 102 mg/dL (74-106); Magnesium 2.3 mg/dL (1.6-2.6); Potassium 3.7 mmol/L (3.5-5.1); Sodium 139 mmol/L (136-145); Total Protein 7.2 g/dL (5.7-8.2)
[2024-12-31 06:45] LABS: Bilirubin, Total 0.7 mg/dL (0.2-1.0)
--- NOTE | 2024-12-31 11:06 | DVHPN2 ---
Reviewed: Care Plan, H&P, Labs, Medications, Previous Orders, Radiology Changes from previous H/P or p: No Changes Objective Vitals Vital Signs Date Time Temp Pulse Resp B/P (MAP) Pulse Ox O2 Delivery O2 Flow Rate FiO2 12/31/24 09:54 138/78 12/31/24 09:00 97.9 90 18 96 97.9 12/31/24 07:30 Room Air* 0 21 Intake/Output Intake and Output 12/31/24 07:00 Intake Total 1250 ml Output Total 600 ml Balance 650 ml Intake Oral 1250 ml Output Urine Total 600 ml # Voids 3 # Bowel Movements 1 Medications Current Medications Medications Dose Ordered Sig/Demond Route Start Time Stop Time Status Last Admin Dose Admin Atorvastatin Calcium 20 mg DAILY PO 12/30/24 10:00 12/31/24 09:54 20 MG Losartan Potassium 100 mg DAILY PO 12/30/24 10:00 12/31/24 09:54 100 MG Amlodipine Besylate 10 mg DAILY PO 12/30/24 10:00 12/31/24 09:54 10 MG Sodium Chloride 10 ml Q8HR IV 12/29/24 22:00 12/31/24 05:04 10 ML Docusate Sodium 100 mg BIDPRN PRN PO 12/29/24 21:45 Acetaminophen 650 mg Q6HP PRN PO 12/29/24 21:45 12/29/24 23:42 650 MG Acetaminophen/ Hydrocodone Bitart 1 tab Q4HP PRN PO 12/29/24 21:45 Hydromorphone HCl 0.5 mg Q4HP PRN IV 12/29/24 21:45 Ondansetron HCl 4 mg Q4HP PRN IV 12/29/24 21:45 Enoxaparin Sodium 40 mg DAILY SC 12/30/24 10:00 Nitroglycerin 0.4 mg Q5MINP PRN SL 12/29/24 21:45 Morphine Sulfate 2 mg Q30M PRN IV 12/29/24 21:45 Laboratory Results Laboratory Tests 12/31/24 05:41 Chemistry Test 12/31/24 05:41 Albumin 4.4 g/dL (3.2-4.8) Calcium Level 9.8 mg/dL (8.7-10.4) Magnesium Level 2.3 mg/dL (1.6-2.6) Total Protein 7.2 g/dL (5.7-8.2) LFT Test 12/31/24 05:41 Alanine Aminotransferase (ALT) 15 U/L (7-40) Alkaline Phosphatase 103 U/L (46-116) Aspartate Amino Transferase (AST) 15 U/L (13-40) Total Bilirubin 0.7 mg/dL (0.2-1.0) Labs and/or images reviewed: Labs reviewed by me, Image(s) reviewed by me Assessment/Plan Assessment/Plan Acute chest pain rule out coronary artery disease: Troponin negative x3, treatment per ACS protocol cardiology consult for Dr. Cordova appreciated Hypertension: Amlodipine Coreg Hypercholesterolemia: Lipitor Thyroid function test normal Echocardiogram 55 percent ejection fraction Cardiolite stress test scheduled for Thursday Plan discussed with: Patient My Orders Orders - LILY MITCHELL MD Procedure Category Date Status Time * Cardiology Consult CONS 12/30/24 Transmitted 12:25 Date of Service: Dec 31, 2024 Billing Provider: LILY MITCHELL MD Common Visit Codes: [id number] INP/OBS CARE(HIGH) LILY MITCHELL MD Dec 31, 2024 11:05
--- NOTE | 2024-12-31 21:24 | DVHPN2 ---
Progress Note - Dictate Date Seen: Dec 31, 2024 Medical Necessity Reason Pt with a Central, PICC or Fol: No Subjective Patient was seen and evaluated in follow up. Patient is complaining pain. Patient is scheduled for cardiac stress test on Thursday. Echocardiogram revealed LVEF normal at 50-55%, mild LVH, mild diastolic dysfunction. Right ventricle size and function normal. Valves not well visualized but grossly normal. vital signs Vital Sign Date Time Temp Pulse Resp B/P (MAP) Pulse Ox O2 Delivery O2 Flow Rate FiO2 12/31/24 17:00 97.6 85 17 114/72 (86) 99 97.6 12/31/24 07:30 Room Air* 0 21 Total Intake and Output 12/30/24 12/30/24 12/31/24 15:00 23:00 07:00 Intake Total 400 ml 850 ml Output Total 600 ml Balance -200 ml 850 ml medications Current Medications Medications Dose Ordered Sig/Demond Route Start Time Stop Time Status Last Admin Dose Admin Atorvastatin Calcium 20 mg DAILY PO 12/30/24 10:00 12/31/24 09:54 20 MG Losartan Potassium 100 mg DAILY PO 12/30/24 10:00 12/31/24 09:54 100 MG Amlodipine Besylate 10 mg DAILY PO 12/30/24 10:00 12/31/24 09:54 10 MG Sodium Chloride 10 ml Q8HR IV 12/29/24 22:00 12/31/24 15:29 10 ML Docusate Sodium 100 mg BIDPRN PRN PO 12/29/24 21:45 Acetaminophen 650 mg Q6HP PRN PO 12/29/24 21:45 12/31/24 20:34 650 MG Acetaminophen/ Hydrocodone Bitart 1 tab Q4HP PRN PO 12/29/24 21:45 Hydromorphone HCl 0.5 mg Q4HP PRN IV 12/29/24 21:45 Ondansetron HCl 4 mg Q4HP PRN IV 12/29/24 21:45 Enoxaparin Sodium 40 mg DAILY SC 12/30/24 10:00 Nitroglycerin 0.4 mg Q5MINP PRN SL 12/29/24 21:45 Morphine Sulfate 2 mg Q30M PRN IV 12/29/24 21:45 objective GENERAL: Alert and oriented x 3. No acute distress. EYES: PERRL, EOMI. Anicteric. HENT: Moist mucous membranes. LUNGS: Clear to auscultation bilaterally. CARDIOVASCULAR: Regular rate and rhythm. ABDOMEN: Soft, nontender and nondistended. EXTREMITIES: No edema. NEUROLOGIC: No focal neurological deficits. SKIN: Warm, dry. laboratory and microbiology Laboratory Tests 12/31/24 05:41 Test 12/31/24 05:41 Range/Units Serum Glucose 102 74-106 mg/dL Problem List Chest pain. Hypertension. Hyperlipidemia. Prediabetes. Kidney stones. Assessment/Plan Continued all current supportive medical care. Dilaudid and [place] for pain management. Amlodipine. Lipitor. DVT prophylactics. Losartan. Additional plan as per the hospital course. Plan discussed with: Patient MAI BEE MD Dec 31, 2024 21:01
[2025-01-01] VITALS (8 sets, daily range): BP systolic 112–150; BP diastolic 51–70; PULSE 77–85; RESP 15–18; TEMP 97.6–99.3; O2SAT 96–99
[2025-01-01 08:26] LABS: Basophils # (auto) 0 10 ^3/uL (0-0.2); Basophils % (auto) 0.5 % (0.0-2.0); Eosinophils # (auto) 0 10 ^3/uL (0-0.8); Eosinophils % (auto) 0.6 % (0.0-7.0); Hemoglobin 14.5 g/dL (12.2-16.2); Lymphocytes # (auto) 1.2 10 ^3/uL (0.4-5.4); Lymphocytes % (auto) 20.4 % (10.0-50.0); Mean Corpuscular Hemoglobin 29.8 pg (28.0-32.0); Mean Corpuscular Hgb Conc. 33.7 g/dL (32.0-36.0); Mean Corpuscular Volume 88.3 fL (80.0-100.0); Monocytes # (auto) 0.3 10 ^3/uL (0-1.3); Monocytes % (auto) 5.6 % (0.0-12.0); Neutrophils # (auto) 4.2 10 ^3/uL (1.6-8.6); Neutrophils % (auto) 72.9 % (37.0-80.0); Platelet Count (auto) 342 10^3/uL (140-450); Red Blood Cells 4.87 10^6/uL (4.0-5.20); Red Cell Distribution Width 13.1 % (11.8-14.3); White Blood Cell 5.8 10^3/uL (4.4-10.8)
[2025-01-01 08:55] LABS: Alanine Aminotransferase 17 U/L (7-40); Albumin 4.7 g/dL (3.2-4.8); Alkaline Phosphatase 105 U/L (46-116); Anion Gap 8 (5-15); Aspartate Aminotransferase 14 U/L (13-40); BUN/Creatinine Ratio 14.9 (10.0-20.0); Blood Urea Nitrogen 11 mg/dL (9-23); Calcium 10.2 mg/dL (8.7-10.4); Carbon Dioxide 30 mmol/L (20-31); Chloride 102 mmol/L (98-107); Magnesium 2.4 mg/dL (1.6-2.6); Potassium 3.8 mmol/L (3.5-5.1); Sodium 140 mmol/L (136-145); Total Protein 7.5 g/dL (5.7-8.2)
[2025-01-01 08:56] LABS: Bilirubin, Total 0.6 mg/dL (0.2-1.0); Glucose 106 mg/dL (74-106)
--- NOTE | 2025-01-01 09:12 | ECG ---
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
--- NOTE | 2025-01-01 14:01 | DVHPN2 ---
Reviewed: Care Plan, H&P, Labs, Medications, Previous Orders, Radiology Changes from previous H/P or p: No Changes Objective Vitals Vital Signs Date Time Temp Pulse Resp B/P (MAP) Pulse Ox O2 Delivery O2 Flow Rate FiO2 01/01/25 12:55 98.1 84 18 134/68 (90) 98 98.1 01/01/25 08:10 Room Air* 0 21 Intake/Output Intake and Output 01/01/25 07:00 Intake Total 1640 ml Balance 1640 ml Intake Oral 1640 ml # Voids 5 # Bowel Movements 1 Medications Current Medications Medications Dose Ordered Sig/Dmeond Route Start Time Stop Time Status Last Admin Dose Admin Atorvastatin Calcium 20 mg DAILY PO 12/30/24 10:00 01/01/25 09:30 20 MG Losartan Potassium 100 mg DAILY PO 12/30/24 10:00 01/01/25 09:31 100 MG Amlodipine Besylate 10 mg DAILY PO 12/30/24 10:00 01/01/25 09:30 10 MG Sodium Chloride 10 ml Q8HR IV 12/29/24 22:00 01/01/25 13:20 10 ML Docusate Sodium 100 mg BIDPRN PRN PO 12/29/24 21:45 Acetaminophen 650 mg Q6HP PRN PO 12/29/24 21:45 12/31/24 20:34 650 MG Acetaminophen/ Hydrocodone Bitart 1 tab Q4HP PRN PO 12/29/24 21:45 Hydromorphone HCl 0.5 mg Q4HP PRN IV 12/29/24 21:45 Ondansetron HCl 4 mg Q4HP PRN IV 12/29/24 21:45 Enoxaparin Sodium 40 mg DAILY SC 12/30/24 10:00 Nitroglycerin 0.4 mg Q5MINP PRN SL 12/29/24 21:45 Morphine Sulfate 2 mg Q30M PRN IV 12/29/24 21:45 Laboratory Results Laboratory Tests 01/01/25 07:11 Chemistry Test 01/01/25 07:11 Albumin 4.7 g/dL (3.2-4.8) Calcium Level 10.2 mg/dL (8.7-10.4) Magnesium Level 2.4 mg/dL (1.6-2.6) Total Protein 7.5 g/dL (5.7-8.2) LFT Test 01/01/25 07:11 Alanine Aminotransferase (ALT) 17 U/L (7-40) Alkaline Phosphatase 105 U/L (46-116) Aspartate Amino Transferase (AST) 14 U/L (13-40) Total Bilirubin 0.6 mg/dL (0.2-1.0) Labs and/or images reviewed: Labs reviewed by me, Image(s) reviewed by me Assessment/Plan Assessment/Plan Acute chest pain rule out coronary artery disease: Troponin negative x3, treatment per ACS protocol cardiology consult for Dr. Cordova appreciated Hypertension: Amlodipine Coreg Hypercholesterolemia: Lipitor Thyroid function test normal Echocardiogram 55 percent ejection fraction Cardiolite stress test scheduled for Thursday Plan discussed with: Patient Date of Service: Jan 01, 2025 Billing Provider: LILY MITCHELL MD Common Visit Codes: [id number] INP/OBS CARE(HIGH) LILY MITCHELL MD Jan 01, 2025 14:01
--- NOTE | 2025-01-01 23:54 | DVHPN2 ---
Progress Note - Dictate Date Seen: Jan 01, 2025 Medical Necessity Reason Pt with a Central, PICC or Fol: No Subjective Patient was seen and evaluated in follow up. Patient is complaining of chest pain. Lab panels are WNL. Patient is undergoing cardiac stress test. vital signs Vital Sign Date Time Temp Pulse Resp B/P (MAP) Pulse Ox O2 Delivery O2 Flow Rate FiO2 01/01/25 12:55 98.1 84 18 134/68 (90) 98 98.1 01/01/25 08:10 Room Air* 0 21 Total Intake and Output 12/31/24 12/31/24 01/01/25 15:00 23:00 07:00 Intake Total 840 ml 800 ml Balance 840 ml 800 ml medications Current Medications Medications Dose Ordered Sig/Demond Route Start Time Stop Time Status Last Admin Dose Admin Atorvastatin Calcium 20 mg DAILY PO 12/30/24 10:00 01/01/25 09:30 20 MG Losartan Potassium 100 mg DAILY PO 12/30/24 10:00 01/01/25 09:31 100 MG Amlodipine Besylate 10 mg DAILY PO 12/30/24 10:00 01/01/25 09:30 10 MG Sodium Chloride 10 ml Q8HR IV 12/29/24 22:00 01/01/25 13:20 10 ML Docusate Sodium 100 mg BIDPRN PRN PO 12/29/24 21:45 Acetaminophen 650 mg Q6HP PRN PO 12/29/24 21:45 12/31/24 20:34 650 MG Acetaminophen/ Hydrocodone Bitart 1 tab Q4HP PRN PO 12/29/24 21:45 Hydromorphone HCl 0.5 mg Q4HP PRN IV 12/29/24 21:45 Ondansetron HCl 4 mg Q4HP PRN IV 12/29/24 21:45 Nitroglycerin 0.4 mg Q5MINP PRN SL 12/29/24 21:45 Morphine Sulfate 2 mg Q30M PRN IV 12/29/24 21:45 objective GENERAL: Alert and oriented x 3. No acute distress. EYES: PERRL, EOMI. Anicteric. HENT: Moist mucous membranes. LUNGS: Clear to auscultation bilaterally. CARDIOVASCULAR: Regular rate and rhythm. ABDOMEN: Soft, nontender and nondistended. EXTREMITIES: No edema. NEUROLOGIC: No focal neurological deficits. SKIN: Warm, dry. laboratory and microbiology Laboratory Tests 01/01/25 07:11 Test 01/01/25 07:11 Range/Units Serum Glucose 106 74-106 mg/dL Problem List Chest pain. Hypertension. Hyperlipidemia. Prediabetes. Kidney stones. Assessment/Plan Continued all current supportive medical care. Dilaudid and [place] for pain management. Amlodipine. Lipitor. DVT prophylactics. Losartan. Additional plan as per the hospital course. Dietary Evaluation Review Comments: 1) Continue to encourage optimal PO intake 2) Follow-up with cardiology 3) Continue to monitor I&O, labs, and skin integrity Expected Outcomes/Goals: 1) appetite and labs to improve 2) follow-up in 3-5 days Plan discussed with: Patient MAI BEE MD Jan 01, 2025 16:35
[2025-01-02 01:00] VITALS: BP 120/60; PULSE 71; RESP 16; TEMP 97.9; O2SAT 99
[2025-01-02 05:00] VITALS: BP 126/73; PULSE 81; RESP 16; TEMP 97.9; O2SAT 96
[2025-01-02 07:51] LABS: Basophils # (auto) 0 10 ^3/uL (0-0.2); Basophils % (auto) 0.4 % (0.0-2.0); Eosinophils # (auto) 0 10 ^3/uL (0-0.8); Eosinophils % (auto) 0.7 % (0.0-7.0); Hemoglobin 14.1 g/dL (12.2-16.2); Lymphocytes # (auto) 1.6 10 ^3/uL (0.4-5.4); Mean Corpuscular Hemoglobin 29.9 pg (28.0-32.0); Mean Corpuscular Hgb Conc. 33.5 g/dL (32.0-36.0); Mean Corpuscular Volume 89.1 fL (80.0-100.0); Monocytes # (auto) 0.4 10 ^3/uL (0-1.3); Monocytes % (auto) 5.9 % (0.0-12.0); Neutrophils # (auto) 4.2 10 ^3/uL (1.6-8.6); Platelet Count (auto) 341 10^3/uL (140-450); Red Blood Cells 4.71 10^6/uL (4.0-5.20); White Blood Cell 6.2 10^3/uL (4.4-10.8)
[2025-01-02 08:17] LABS: Alanine Aminotransferase 14 U/L (7-40); Albumin 4.3 g/dL (3.2-4.8); Alkaline Phosphatase 100 U/L (46-116); Anion Gap 9 (5-15); BUN/Creatinine Ratio 10.7 (10.0-20.0); Calcium 9.6 mg/dL (8.7-10.4); Carbon Dioxide 24 mmol/L (20-31); Chloride 106 mmol/L (98-107); Potassium 3.9 mmol/L (3.5-5.1); Sodium 139 mmol/L (136-145); Total Protein 7.1 g/dL (5.7-8.2)
[2025-01-02 08:18] LABS: Bilirubin, Total 0.5 mg/dL (0.2-1.0)
[2025-01-02 08:32] LABS: Aspartate Aminotransferase 9 U/L (13-40); Blood Urea Nitrogen 8 mg/dL (9-23); Glucose 110 mg/dL (74-106); Magnesium 2.7 mg/dL (1.6-2.6)
[2025-01-02 09:00] VITALS: BP 140/69; PULSE 84; RESP 18; TEMP 98.2; O2SAT 99
--- NOTE | 2025-01-02 10:43 | ECG ---
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
[2025-01-02] MEDS: REGADENOSON 0.4 MG/5 ML SYRG IV ONE ×2 (10:47)
[2025-01-02 13:00] VITALS: BP 130/74; PULSE 74; RESP 18; TEMP 98.2; O2SAT 100
--- NOTE | 2025-01-02 14:54 | DVHPN2 ---
Reviewed: Care Plan, H&P, Labs, Medications, Previous Orders, Radiology Changes from previous H/P or p: No Changes Objective Vitals Vital Signs Date Time Temp Pulse Resp B/P (MAP) Pulse Ox O2 Delivery O2 Flow Rate FiO2 01/02/25 13:00 98.2 74 18 130/74 (92) 100 98.2 01/02/25 08:04 Room Air* 0 21 Intake/Output Intake and Output 01/02/25 07:00 Intake Total 1585 ml Output Total 3 ml Balance 1582 ml Intake Oral 1585 ml Stool Total 3 ml # Voids 6 Medications Current Medications Medications Dose Ordered Sig/Demond Route Start Time Stop Time Status Last Admin Dose Admin Atorvastatin Calcium 20 mg DAILY PO 12/30/24 10:00 01/02/25 09:18 20 MG Losartan Potassium 100 mg DAILY PO 12/30/24 10:00 01/02/25 09:18 100 MG Amlodipine Besylate 10 mg DAILY PO 12/30/24 10:00 01/02/25 09:19 10 MG Sodium Chloride 10 ml Q8HR IV 12/29/24 22:00 01/02/25 13:10 10 ML Docusate Sodium 100 mg BIDPRN PRN PO 12/29/24 21:45 Acetaminophen 650 mg Q6HP PRN PO 12/29/24 21:45 01/01/25 21:53 650 MG Acetaminophen/ Hydrocodone Bitart 1 tab Q4HP PRN PO 12/29/24 21:45 Hydromorphone HCl 0.5 mg Q4HP PRN IV 12/29/24 21:45 Ondansetron HCl 4 mg Q4HP PRN IV 12/29/24 21:45 Nitroglycerin 0.4 mg Q5MINP PRN SL 12/29/24 21:45 Morphine Sulfate 2 mg Q30M PRN IV 12/29/24 21:45 Laboratory Results Laboratory Tests 01/02/25 07:21 Chemistry Test 01/02/25 07:21 Albumin 4.3 g/dL (3.2-4.8) Calcium Level 9.6 mg/dL (8.7-10.4) Magnesium Level 2.7 mg/dL (1.6-2.6) H Total Protein 7.1 g/dL (5.7-8.2) LFT Test 01/02/25 07:21 Alanine Aminotransferase (ALT) 14 U/L (7-40) Alkaline Phosphatase 100 U/L (46-116) Aspartate Amino Transferase (AST) 9 U/L (13-40) L Total Bilirubin 0.5 mg/dL (0.2-1.0) Labs and/or images reviewed: Labs reviewed by me, Image(s) reviewed by me Assessment/Plan Assessment/Plan Acute chest pain rule out coronary artery disease: Troponin negative x3, treatment per ACS protocol cardiology consult for Dr. Cordova appreciated Hypertension: Amlodipine Coreg Hypercholesterolemia: Lipitor Thyroid function test normal Echocardiogram 55 percent ejection fraction Cardiolite stress test result pending Plan discussed with: Patient My Orders Orders - LILY MITCHELL MD Procedure Category Date Status Time Npo After Midnight ORDERS 01/01/25 Transmitted Cardiac DIET 01/02/25 Transmitted Diet-2gna,Lofat,Lochol Lunch Date of Service: Jan 02, 2025 Billing Provider: LILY MITCHELL MD Common Visit Codes: [id number] INP/OBS CARE(HIGH) LILY MITCHELL MD Jan 02, 2025 14:54
[2025-01-02 17:00] VITALS: BP 128/44; PULSE 77; RESP 20; TEMP 97.7; O2SAT 98
[2025-01-02 21:00] VITALS: BP 147/76; PULSE 70; RESP 18; TEMP 98.2; O2SAT 96
--- NOTE | 2025-01-02 23:00 | DVHPN2 ---
Progress Note - Dictate Date Seen: Jan 02, 2025 Medical Necessity Reason Pt with a Central, PICC or Fol: No Subjective Patient was seen and evaluated in follow up. No overnight events. Patient is resting in bed. Echocardiogram 55 percent ejection fraction. Patient undergoing cardiac stress test today. vital signs Vital Sign Date Time Temp Pulse Resp B/P (MAP) Pulse Ox O2 Delivery O2 Flow Rate FiO2 01/02/25 21:00 98.2 70 18 147/76 (99) 96 98.2 01/02/25 20:00 Room Air* 0 21 Total Intake and Output 01/01/25 01/01/25 01/02/25 15:00 23:00 07:00 Intake Total 400 ml 945 ml 240 ml Output Total 2 ml 1 ml Balance 400 ml 943 ml 239 ml medications Current Medications Medications Dose Ordered Sig/Demond Route Start Time Stop Time Status Last Admin Dose Admin Atorvastatin Calcium 20 mg DAILY PO 12/30/24 10:00 01/02/25 09:18 20 MG Losartan Potassium 100 mg DAILY PO 12/30/24 10:00 01/02/25 09:18 100 MG Amlodipine Besylate 10 mg DAILY PO 12/30/24 10:00 01/02/25 09:19 10 MG Sodium Chloride 10 ml Q8HR IV 12/29/24 22:00 01/02/25 21:06 10 ML Docusate Sodium 100 mg BIDPRN PRN PO 12/29/24 21:45 Acetaminophen 650 mg Q6HP PRN PO 12/29/24 21:45 01/01/25 21:53 650 MG Acetaminophen/ Hydrocodone Bitart 1 tab Q4HP PRN PO 12/29/24 21:45 Hydromorphone HCl 0.5 mg Q4HP PRN IV 12/29/24 21:45 Ondansetron HCl 4 mg Q4HP PRN IV 12/29/24 21:45 Nitroglycerin 0.4 mg Q5MINP PRN SL 12/29/24 21:45 Morphine Sulfate 2 mg Q30M PRN IV 12/29/24 21:45 objective GENERAL: Alert and oriented x 3. No acute distress. EYES: PERRL, EOMI. Anicteric. HENT: Moist mucous membranes. LUNGS: Clear to auscultation bilaterally. CARDIOVASCULAR: Regular rate and rhythm. ABDOMEN: Soft, nontender and nondistended. EXTREMITIES: No edema. NEUROLOGIC: No focal neurological deficits. SKIN: Warm, dry. laboratory and microbiology Laboratory Tests 01/02/25 07:21 Test 01/02/25 07:21 Range/Units Serum Glucose 110 H 74-106 mg/dL Problem List Chest pain. Hypertension. Hyperlipidemia. Prediabetes. Kidney stones. Assessment/Plan Continued all current supportive medical care. Dilaudid and [place] for pain management. Amlodipine. Lipitor. DVT prophylactics. Losartan. Additional plan as per the hospital course. Dietary Evaluation Review Comments: 1) Continue to encourage optimal PO intake 2) Follow-up with cardiology 3) Continue to monitor I&O, labs, and skin integrity Expected Outcomes/Goals: 1) appetite and labs to improve 2) follow-up in 3-5 days Plan discussed with: Patient MAI BEE MD Jan 02, 2025 23:00
[2025-01-03 01:00] VITALS: BP 123/73; PULSE 66; RESP 16; TEMP 97.7; O2SAT 98
[2025-01-03 05:00] VITALS: BP 123/69; PULSE 69; RESP 18; TEMP 97.5; O2SAT 98
[2025-01-03 08:00] VITALS: PULSE 69; RESP 16; O2SAT 99
[2025-01-03 08:01] LABS: Basophils # (auto) 0 10 ^3/uL (0-0.2); Basophils % (auto) 0.3 % (0.0-2.0); Eosinophils # (auto) 0 10 ^3/uL (0-0.8); Eosinophils % (auto) 0.6 % (0.0-7.0); Hematocrit 41.1 % (36.0-46.0); Hemoglobin 14.2 g/dL (12.2-16.2); Lymphocytes # (auto) 1.5 10 ^3/uL (0.4-5.4); Mean Corpuscular Hemoglobin 30.2 pg (28.0-32.0); Mean Corpuscular Hgb Conc. 34.4 g/dL (32.0-36.0); Mean Corpuscular Volume 87.8 fL (80.0-100.0); Monocytes # (auto) 0.4 10 ^3/uL (0-1.3); Monocytes % (auto) 6.6 % (0.0-12.0); Neutrophils # (auto) 4.7 10 ^3/uL (1.6-8.6); Neutrophils % (auto) 69.5 % (37.0-80.0); Nucleated Red Blood Cells % 0.1 %; Platelet Count (auto) 338 10^3/uL (140-450); Red Blood Cells 4.69 10^6/uL (4.0-5.20); Red Cell Distribution Width 12.8 % (11.8-14.3); White Blood Cell 6.7 10^3/uL (4.4-10.8)
--- NOTE | 2025-01-03 08:07 | DVHSR ---
APPROVED REPORT Exam: Nuclear Stress Test Indication: Chest pain Stress Tech: Liz Le Ht: 4 ft 9 in Wt: 114 lbs BSA: 1.42 m2 BMI: 24.66 Medical History Medical History: EF 50-55%, HTN, Hyperlipidemia, PREDIABETIC, KIDNEY STONES Stress Test Details Stress Test: Pharmacologic stress testing performed using 0.4 mg of regadenoson per 5 mL given IV ov er 10 seconds. Reason for pharmacologic stress test: CHEST PAIN. HR Resting HR: 78 bpmMax Heart Rate (APMHR): 157.513389 bpm Max HR Achieved: 127 bpmTarget HR (85% APMHR): 133.450719 bpm % of APMHR: 80.89 Recovery HR: 90 bpm BP Resting BP: 140/64 mmHg Recovery BP: 126/61 mmHg ECG Resting ECG: Sinus Rhythm Clinical Reason for Termination: Completed protocol Nurse Comments Received patient from Nuclear Medicine. Patient is A&O x4 and on RA. FOR VS please refer back to st ress test assessment documentation. Patient is connected to desk monitor. See cardio-neuro proce dural notes for addtional details. PIV flushes well. Reviewed POC and patient verbalizes understand ing and consents to test. Lexiscan stress test performed per protocol. sterile processing tech administered the Cardiolite. Pat ient tolerated well and vitals returned to baseline. Transferred to Nuclear Medicine via wheelchair with tech in stable condition. Stress ECG Conclusion normal perfusin scan small lv cavity unreiliable lvef given small lv cavity no ischemia noted NM EXAM: Myocardial Perfusion REST/STRESS Imaging Protocol: Rest Tc-99m/Stress Tc-99m 1 day Resting Data Rest SPECT myocardial perfusion imaging was performed in supine position 60 minutes following the int ravenous injection of 11.3 mCi of Tc-99m Sestamibi. Time of rest injection: 0815 Time of rest imagin Administration Route: IV Administration Site: Left Hand Pharmacologic Stress Pharmacologic stress test was performed by injecting Regadenoson 0.4 mg IV push followed by the intra venous injection of 31.5 mCi of Tc-99m Sestamibi. Time of stress injection: 1005 Time of stress imagin Administration Route: IV Administration Site: Left Hand Gated Stress SPECT was performed 50 minutes after stress injection. The images were gated to evaluate regional wall motion and calculate left ventricular ejection fracti on. Nuclear Conclusion Nuclear Findings: negative for ischemia normal perfusin scan small lv cavity unreiliable lvef given small lv cavity no ischemia noted
[2025-01-03 08:35] LABS: Alanine Aminotransferase 17 U/L (7-40); Albumin 4.6 g/dL (3.2-4.8); Alkaline Phosphatase 108 U/L (46-116); Anion Gap 10 (5-15); Aspartate Aminotransferase 17 U/L (13-40); BUN/Creatinine Ratio 11.8 (10.0-20.0); Blood Urea Nitrogen 9 mg/dL (9-23); Calcium 10.2 mg/dL (8.7-10.4); Carbon Dioxide 26 mmol/L (20-31); Chloride 102 mmol/L (98-107); Magnesium 2.4 mg/dL (1.6-2.6); Potassium 3.9 mmol/L (3.5-5.1); Sodium 138 mmol/L (136-145); Total Protein 7.5 g/dL (5.7-8.2)
[2025-01-03 08:36] LABS: Bilirubin, Total 0.7 mg/dL (0.2-1.0)
[2025-01-03 08:42] LABS: Glucose 108 mg/dL (74-106)
[2025-01-03 09:30] VITALS: BP 120/38; PULSE 69; RESP 16; TEMP 97.6; O2SAT 99
--- NOTE | 2025-01-03 12:09 | DVHPN2 ---
Reviewed: Care Plan, H&P, Labs, Medications, Previous Orders, Radiology Changes from previous H/P or p: No Changes Objective Vitals Vital Signs Date Time Temp Pulse Resp B/P (MAP) Pulse Ox O2 Delivery O2 Flow Rate FiO2 01/03/25 09:30 97.6 69 16 120/38 (65) 99 97.6 01/03/25 08:00 Room Air* 0 21 Intake/Output Intake and Output 01/03/25 07:00 Intake Total 1900 ml Output Total 2 ml Balance 1898 ml Intake Oral 1900 ml Stool Total 2 ml # Voids 5 Medications Current Medications Medications Dose Ordered Sig/Demond Route Start Time Stop Time Status Last Admin Dose Admin Atorvastatin Calcium 20 mg DAILY PO 12/30/24 10:00 01/03/25 09:15 20 MG Losartan Potassium 100 mg DAILY PO 12/30/24 10:00 01/03/25 09:15 100 MG Amlodipine Besylate 10 mg DAILY PO 12/30/24 10:00 01/03/25 09:14 10 MG Sodium Chloride 10 ml Q8HR IV 12/29/24 22:00 01/03/25 05:28 10 ML Docusate Sodium 100 mg BIDPRN PRN PO 12/29/24 21:45 Acetaminophen 650 mg Q6HP PRN PO 12/29/24 21:45 01/01/25 21:53 650 MG Acetaminophen/ Hydrocodone Bitart 1 tab Q4HP PRN PO 12/29/24 21:45 Hydromorphone HCl 0.5 mg Q4HP PRN IV 12/29/24 21:45 Ondansetron HCl 4 mg Q4HP PRN IV 12/29/24 21:45 Nitroglycerin 0.4 mg Q5MINP PRN SL 12/29/24 21:45 Morphine Sulfate 2 mg Q30M PRN IV 12/29/24 21:45 Laboratory Results Laboratory Tests 01/03/25 07:08 Chemistry Test 01/03/25 07:08 Albumin 4.6 g/dL (3.2-4.8) Calcium Level 10.2 mg/dL (8.7-10.4) Magnesium Level 2.4 mg/dL (1.6-2.6) Total Protein 7.5 g/dL (5.7-8.2) LFT Test 01/03/25 07:08 Alanine Aminotransferase (ALT) 17 U/L (7-40) Alkaline Phosphatase 108 U/L (46-116) Aspartate Amino Transferase (AST) 17 U/L (13-40) Total Bilirubin 0.7 mg/dL (0.2-1.0) Labs and/or images reviewed: Labs reviewed by me, Image(s) reviewed by me Assessment/Plan Assessment/Plan Acute chest pain rule out coronary artery disease: Troponin negative x3, treatment per ACS protocol cardiology consult for Dr. Cordova appreciated Hypertension: Amlodipine Coreg Hypercholesterolemia: Lipitor Thyroid function test normal Echocardiogram 55 percent ejection fraction Cardiolite stress test negative Plan discussed with: Patient Date of Service: Jan 03, 2025 Billing Provider: LILY MITCHELL MD Common Visit Codes: [id number] INP/OBS CARE(HIGH) LILY MITCHELL MD Jan 03, 2025 12:09
--- NOTE | 2025-01-03 12:13 | DVHDS2 ---
Discharge Summary Date of Admission Dec 29, 2024 at 21:33 Date of Discharge: Jan 03, 2025 Admitting Diagnosis Chest pain Wounds: None Labs/Diagnostic Data: Laboratory Results Test 01/03/25 07:08 12/30/24 06:33 12/29/24 20:47 12/29/24 19:21 White Blood Count 6.7 10^3/uL (4.4-10.8) Red Blood Count 4.69 10^6/uL (4.0-5.20) Hemoglobin 14.2 g/dL (12.2-16.2) Hematocrit 41.1 % (36.0-46.0) Mean Corpuscular Volume 87.8 fL (80.0-100.0) Mean Corpuscular Hemoglobin 30.2 pg (28.0-32.0) Mean Corpuscular Hemoglobin Concent 34.4 g/dL (32.0-36.0) Red Cell Distribution Width 12.8 % (11.8-14.3) Platelet Count 338 10^3/uL (140-450) Mean Platelet Volume 6.7 fL (6.9-10.8) Neutrophils (%) (Auto) 69.5 % (37.0-80.0) Lymphocytes (%) (Auto) 23.0 % (10.0-50.0) Monocytes (%) (Auto) 6.6 % (0.0-12.0) Eosinophils (%) (Auto) 0.6 % (0.0-7.0) Basophils (%) (Auto) 0.3 % (0.0-2.0) Neutrophils # (Auto) 4.7 10 ^3/uL (1.6-8.6) Lymphocytes # (Auto) 1.5 10 ^3/uL (0.4-5.4) Monocytes # (Auto) 0.4 10 ^3/uL (0-1.3) Eosinophils # (Auto) 0 10 ^3/uL (0-0.8) Basophils # (Auto) 0 10 ^3/uL (0-0.2) Nucleated Red Blood Cells 0.1 % Sodium Level 138 mmol/L (136-145) Potassium Level 3.9 mmol/L (3.5-5.1) Chloride Level 102 mmol/L (98-107) Carbon Dioxide Level 26 mmol/L (20-31) Anion Gap 10 (5-15) Blood Urea Nitrogen 9 mg/dL (9-23) Creatinine 0.76 mg/dL (0.550-1.02) Glomerular Filtration Rate Calc 88 mL/min (>90) BUN/Creatinine Ratio 11.8 (10.0-20.0) Serum Glucose 108 mg/dL (74-106) Calcium Level 10.2 mg/dL (8.7-10.4) Magnesium Level 2.4 mg/dL (1.6-2.6) Total Bilirubin 0.7 mg/dL (0.2-1.0) Aspartate Amino Transferase (AST) 17 U/L (13-40) Alanine Aminotransferase (ALT) 17 U/L (7-40) Alkaline Phosphatase 108 U/L (46-116) Total Protein 7.5 g/dL (5.7-8.2) Albumin 4.6 g/dL (3.2-4.8) Triglycerides Level 62 mg/dL (< 150) Cholesterol Level 130 mg/dL (< 200) LDL Cholesterol 61 mg/dL (< 100) HDL Cholesterol 60 mg/dL (40-59) Troponin I High Sensitivity < 3 ng/L (</=34) Blood Gas Specimen Type Arterial Blood Gas Sample Site Right brachial Blood Gas Patient Temperature 37.0 Arterial Blood Date Drawn [id number] Arterial Blood pH 7.453 (7.350-7.450) Arterial Blood Partial Pressure CO2 41.5 mmHg (32.0-45.0) Arterial Blood Partial Pressure O2 76.0 mmHg (83.0-108.0) Arterial Blood HCO3 28.4 mmol/L (21.0-28.0) Arterial Blood Oxygen Saturation 95.4 % (94.0-98.0) Arterial Blood Base Excess 4.1 mmol/L (-2.0-3.0) Arterial Blood Oxyhemoglobin 94.6 % (94.0-98.0) Arterial Blood Carboxyhemoglobin 0.5 % (0.5-1.5) Arterial Blood Methemoglobin 0.3 % (0.0-1.5) Yuval Test N/a Blood Gas Total Hemoglobin 14.40 g/dL (12.0-16.0) Blood Gas Modality Room air FiO2 % 21.0 Test 12/29/24 18:19 D-Dimer, Quantitative < 0.19 mg/L FEU (0.0-0.49) B-Type Natriuretic Peptide 14.06 pg/mL (0-100) Thyroid Stimulating Hormone (TSH) 2.17 uIU/mL (0.55-4.78) Other Laboratory Tests 01/03/25 07:08 Brief Hx & Hospital Course: 64-year-old female with a history of hypertension hypercholesterolemia came in for chest pain troponin negative x3 treatment per ACS protocol cardiology consult Dr. Cordova. Ejection fraction 55 percent Cardiolite stress test negative. Discharged home patient is stable at the time of discharge patient has noncardiac chest pain. Consults/Reason for consult Cardiology Operations or Procedures Cardiolite stress test Condition at Discharge: Fair Final Diagnosis/Problems List Acute chest pain rule out coronary artery disease: Troponin negative x3, treatment per ACS protocol cardiology consult for Dr. Cordova appreciated Hypertension: Amlodipine Coreg Hypercholesterolemia: Lipitor Thyroid function test normal Echocardiogram 55 percent ejection fraction Cardiolite stress test negative Discharge Disposition: Home Discharge Instruct/Medications Diet: Cardiac 2g Na,low cholest Activity: Light activity Follow Up/Referral: Follow up with your primary Dr De La Paz all previous home meds Medications: none 35 (Time taken for discharge summary 35 minutes) Discharge Statement: "Patient was advised to return to the ER or call 911 if any headaches, dizziness, shortness of breath, chest pain, abdominal pain, bleeding, fevers, or worsening of medical condition. Patient was counseled about treatment plan, medications, possible side effects, patientverbalized understanding. All questions were answered to the best of my ability. This discharge took greater then 30 minutes in planning, reviewing documentation, counseling the patient, and discussing with other team members." ASSESSMENT ASSESSMENT Hospital Course Improved Assessment Acute chest pain rule out coronary artery disease: Troponin negative x3, treatment per ACS protocol cardiology consult for Dr. Cordova appreciated Hypertension: Amlodipine Coreg Hypercholesterolemia: Lipitor Thyroid function test normal Echocardiogram 55 percent ejection fraction Cardiolite stress test negative Date of Service: Jan 03, 2025 Billing Provider: LILY MITCHELL MD Common Visit Codes: 25830-TPP/OBS DISCH DAY >30min LILY MITCHELL MD Jan 03, 2025 12:13
[2025-01-03 12:23] VITALS: BP 128/70; PULSE 69; RESP 18; TEMP 97.7; O2SAT 99
[2025-01-03 12:34] VITALS: BP 122/65; PULSE 91; RESP 16; TEMP 97.9; O2SAT 97
--- NOTE | 2025-01-03 23:27 | DVHPN2 ---
Progress Note - Dictate Date Seen: Jan 03, 2025 Medical Necessity Reason Pt with a Central, PICC or Fol: No Subjective Patient was seen and evaluated in follow up. Patient has no new complaints at this time. Stress test was negative for ischemia. Patient is cardiac stable for discharge. vital signs Vital Sign Date Time Temp Pulse Resp B/P (MAP) Pulse Ox O2 Delivery O2 Flow Rate FiO2 01/03/25 12:34 97.9 91 16 122/65 (84) 97 97.9 01/03/25 08:00 Room Air* 0 21 Total Intake and Output 01/02/25 01/02/25 01/03/25 15:00 23:00 07:00 Intake Total 1300 ml 600 ml Output Total 2 ml Balance 1298 ml 600 ml objective GENERAL: Alert and oriented x 3. No acute distress. EYES: PERRL, EOMI. Anicteric. HENT: Moist mucous membranes. LUNGS: Clear to auscultation bilaterally. CARDIOVASCULAR: Regular rate and rhythm. ABDOMEN: Soft, nontender and nondistended. EXTREMITIES: No edema. NEUROLOGIC: No focal neurological deficits. SKIN: Warm, dry. laboratory and microbiology Laboratory Tests 01/03/25 07:08 Test 01/03/25 07:08 Range/Units Serum Glucose 108 H 74-106 mg/dL Problem List Chest pain. Hypertension. Hyperlipidemia. Prediabetes. Kidney stones. Assessment/Plan Continued all current supportive medical care. Dilaudid and [place] for pain management. Amlodipine. Lipitor. DVT prophylactics. Losartan. Additional plan as per the hospital course. Dietary Evaluation Review Comments: 1) Continue to encourage optimal PO intake 2) Follow-up with cardiology 3) Continue to monitor I&O, labs, and skin integrity Expected Outcomes/Goals: 1) appetite and labs to improve 2) follow-up in 3-5 days Plan discussed with: Patient MAI BEE MD Jan 03, 2025 23:27
== END 2025-01-03 12:55 | disposition home or self-care (01) | DRG 303 ==
LOC: ER 18:15 → OVERFLOW 21:33 → WEST WING 22:23
PROVIDERS: ADMIT Family Medicine; ATTEND Family Medicine
DX: I25.10 Atherosclerotic heart disease of native coronary artery without angina pectoris (principal); N20.0 Calculus of kidney; I10 Essential (primary) hypertension; E78.00 Pure hypercholesterolemia, unspecified; R73.03 Prediabetes; Z90.49 Acquired absence of other specified parts of digestive tract; Z79.2 Long term (current) use of antibiotics; Z79.891 Long term (current) use of opiate analgesic; Z79.1 Long term (current) use of non-steroidal anti-inflammatories (NSAID); Z79.899 Other long term (current) drug therapy; Z80.1 Family history of malignant neoplasm of trachea, bronchus and lung; Z82.3 Family history of stroke; Z82.61 Family history of arthritis; Z87.891 Personal history of nicotine dependence; Z82.49 Family history of ischemic heart disease and other diseases of the circulatory system; Z87.442 Personal history of urinary calculi
CPT/HCPCS: 36415; 36600; 71045; 78452; 80053; 80061; 82805; 83735; 83880; 84443; 84484; 85025; 85379; 93005; 93017; 93306; 99291; G0378